=== PATIENT | male | born 1960 | race Caucasian/White ===

== ENCOUNTER → 2018-04-11 07:52 | Outpatient (CLI) | payer OTHER, SELFPAY ==
--- NOTE | 2018-04-11 08:16 | US_ITS ---
US abdomen limited History:Upper abdominal pain, burning, reflux Ordering Physician:Jessica Ramsey Patient Age: 57 years Comparison:02/25/2012 Findings: Pancreas:Unremarkable. No obvious mass or abnormal fluid collection. No ductal dilatation Liver:There is a septated cyst in the right hepatic lobe anteriorly at 2.7 cm. This previously measured 2 cm. There is a small central hepatic cyst is also noted at 1.3 cm with a septation. Right Kidney:Unremarkable. Normal size and echogenicity. No hydronephrosis Gallbladder:There is some increase echogenicity noted involving the anterior wall of the gallbladder suggesting small cholesterol polyps.. No shadowing stones. Small amount sludge is present. Gallbladder wall is slightly thickened measuring up to 4 mm. No pericholecystic fluid Impression: 1. There are at least 2 septated hepatic cysst. 2. Gallbladder wall polyps with a small amount sludge and mild gallbladder wall thickening otherwise negative with no stones apparent
== END ==
PROVIDERS: PCP Nurse Practitioner Family; Visit Provider Nurse Practitioner Family
DX: R10.10 Upper abdominal pain, unspecified (principal); R10.13 Epigastric pain
CPT/HCPCS: 76705

== ENCOUNTER → 2018-04-25 12:27 | Outpatient (CLI) | payer OTHER, SELFPAY ==
[2018-04-25 13:54] LABS: Blood Urea Nitrogen 19 mg/dL (7-18); Creatinine,Serum 0.96 mg/dL (0.70-1.30); Estimated Glomerular Filt Rate 81 ml/min (>60); GFR (African American) 98 ML/MIN (>60)
== END ==
PROVIDERS: Visit Provider Family Medicine
DX: K76.89 Other specified diseases of liver (principal)
CPT/HCPCS: 36415; 82565; 84520

== ENCOUNTER → 2018-04-26 09:28 | Outpatient (CLI) | payer OTHER, SELFPAY ==
--- NOTE | 2018-04-26 09:32 | CT_ITS ---
CT abdomen w con CLINICAL INDICATION: Follow-up hepatic lesion, abnormal ultrasound ITS.REASON: LIVER CYST ORDERING PHYSICIAN: Eriberto Duval MD PATIENT AGE: 57 years COMPARISON: 04/11/2018 TECHNIQUE: Axial images obtained with sagittal and coronal reformats. . Three-phase post enhanced images obtained at 30 seconds, 60 seconds, and 5 minute delay following contrast administration All CT scans at the facility use one or more dose reduction, viz: automated exposure control, ma/kV adjustment per patient size (including targeted exams where dose is matched to indication, i.e. head), or iterative reconstruction technique. PROCEDURE: Oral Contrast: None IV Contrast: 75 mL is Isovue-370. FINDINGS: No acute finding in the lung bases. There are multiple hypoattenuating lesions of the liver the largest in the right hepatic lobe laterally at 3 cm. These do not demonstrate contrast enhancement in the internal density is that of water consistent with hepatic cysts. No enhancing lesions. The gallbladder, spleen, pancreas, and adrenal glands have an unremarkable appearance. No renal mass or hydronephrosis. There is a nonobstructing 5 mm stone in the lower pole the right kidney. No ureteral calculi. No intestinal obstruction or free air. Unremarkable appendix. The pelvis was not included in the exam. No evidence of aortic aneurysm. No acute bony anomalies. IMPRESSION: 1. Multiple hypoattenuating hepatic lesions consistent with cysts. 2. Nonobstructing right nephrolithiasis. 3. Otherwise negative abdominal CT with contrast
== END ==
PROVIDERS: PCP Family Medicine; Visit Provider Family Medicine
DX: K76.89 Other specified diseases of liver (principal)
CPT/HCPCS: 74160; Q9967

== ENCOUNTER 2019-11-04 12:59 | Emergency (ER) | payer OTHER, SELFPAY ==
[2019-11-04 13:20] VITALS: BP 154/102; PULSE 83; RESP 19; TEMP 36.6; O2SAT 98; BMI 31.1
--- NOTE | 2019-11-04 13:39 | HMH.EDUTC ---
[facility] [place] Impression: Maxillary sinusitis, acute Qualifiers: Recurrence: non-recurrent Qualified Code(s): J01.00 - Acute maxillary sinusitis, unspecified Disposition: Home, Self-Care Condition on Discharge: Good Instructions: Sinusitis, DI for Sinusitis Additional Instructions: Start antibiotic patient to take as ordered for a full length of time even if you feel better. Sinus infections do not get better overnight. It may take 2-3 days to notice much improvement so be sure to use conservative measures as discussed for symptoms. Flonase 1 spray each nostril daily to help with nasal congestion, sinus and ear pressure/information Increase fluids Humidifier/vaporizer as needed Tylenol and ibuprofen as needed for fever or pain. If symptoms do not improve or get worse return or be seen in the ER Follow-up with primary care this week Prescriptions: Azithromycin [Zithromax 250mg tab] 250 mg PO DIRECTED #6 tab Prescription Printed Referrals: Efrain Culver MD [Primary Care Provider] - Time of Disposition: 13:50 Medical Decision Making - Sami Inquiry Pt receiving controlled substance: No Vital Signs: 11/04/19 13:20 Temperature 97.8 F Temperature Source Oral Pulse Rate [Right Brachial] 83 Respiratory Rate 19 Blood Pressure [Right Arm] 154/102 H Blood Pressure Mean [Right Arm] 119 Blood Pressure Source [Right Arm] Automatic Cuff Blood Pressure Position [Right Arm] Sitting 02 Sat by Pulse Oximetry 98 Oxygen Delivery Method Room Air [facility] [place] - General Chief complaint: Ear Stated complaint: ear pain Time Seen by Provider: 11/04/19 13:39 Mode of Arrival: Ambulatory Source of Information: Patient Limitations: No Limitations Description of Symptoms (Recalled from Triage Doc. by RN): PATIENT EARACHE AND SINUS PAIN X 3 DAYS HEENT Symptoms (Recalled from RN notes): Yes Resp Symptoms (Recalled from RN notes): No Skin Symptoms (Recalled from RN notes): No MS Symptoms (Recalled from RN notes): No Functional Status (Recalled from RN notes): WNL - History of Present Illness Provider Complaint: 59 yr old male presents for rt side ear pain with sinus pressure. pt states teeth on the upper rt side hurt. - Related Data Previous Rx's Medication Instructions Recorded Azithromycin [Zithromax 250mg 250 mg PO DIRECTED #6 tab 11/04/19 tab] Allergies Allergy/AdvReac Type Severity Reaction Status Date / Time No Known Allergies Allergy Verified 05/26/18 16:49 - Worker's Comp Is this a Worker's Comp case?: No [facility] History - Hepatitis A Screen Drug use history?: No High risk sexual behaviors?: No History of sexually transmitted infection?: No Currently employed?: No Childcare worker?: No Do you have indoor plumbing?: Yes Do you have electricity?: Yes Attestation statement:: This patient has been screened for Hepatitis A risk factors. I have reviewed the patient's past medical history: Yes - Social History Smoking Status: Never smoker Alcohol Intake: never Occupational Status: other ROS Obtained: Yes Systems reviewed as appropriate & no additional complaints - Constitutional Constitutional: Reports system reviewed and no additional complaints, except as docu, Denies fever(s) - Eyes Eyes: Reports system reviewed and no additional complaints, except as docu, Denies change in vision - ENT Ears, Nose, Mouth, and Throat: Reports system reviewed and no additional complaints, except as docu, Reports otalgia, Reports nasal congestion, Denies nasal obstruction, Reports sinus pain, Reports sinus pressure, Denies sore throat - Cardiovascular Cardiovascular: Reports system reviewed and no additional complaints, except as docu, Denies chest pain - Respiratory Respiratory: Yes system reviewed and no additional complaints, except as docu, No chest congestion - Gastrointestinal Gastrointestingal: Reports: system reviewed and no additional complaints, except as docu. Denies
[2019-11-04 14:07] VITALS: BP 154/102; PULSE 83; RESP 19; TEMP 36.6; O2SAT 98
== END 2019-11-04 14:10 | disposition home or self-care (01) ==
PROVIDERS: Emergency Provider Nurse Practitioner Family; PCP Family Medicine
DX: J01.00 Acute maxillary sinusitis, unspecified (principal)
CPT/HCPCS: 96372; 99201

== ENCOUNTER → 2019-11-16 11:31 | Outpatient (CLI) | payer OTHER, SELFPAY ==
--- NOTE | 2019-11-16 11:36 | CT_ITS ---
PROCEDURE: CT SOFT TISSUE NECK WO CON CLINICAL HISTORY: LYMPHADENITIS, ACUTE, CERVICAL ADENOPATHY COMPARISON: No exams were available for comparison TECHNIQUE: Oral Contrast: None IV Contrast: None Axial images obtained with sagittal and coronal reformats. All CT scans at the facility use one or more dose reduction, viz: automated exposure control, ma/kV adjustment per patient size (including targeted exams where dose is matched to indication, i.e. head), or iterative reconstruction technique. FINDINGS: The parotid glands are normal and symmetrical bilaterally. There are few normal size to borderline enlarged nodes in the jugulodigastric chain bilaterally. The submandibular glands appear normal. The oral pharyngeal airway appears grossly normal. The valleculae and piriform sinuses are normal. The vocal cords appear normal. There is a somewhat irregular appearing hypodense lesion anterior aspect left lobe of the thyroid. Consider follow-up ultrasound evaluation of the thyroid. IMPRESSION: No obvious abnormal cervical lymphadenopathy, there are multiple normal to borderline size nodes in the jugulodigastric chain bilaterally. Dictated by: Dr. Constantino Ken MD 11/16/2019 12:33 Dr. Constantino Ken MD in [place] 11/16/2019 12:33
--- NOTE | 2019-11-16 11:36 | CT_ITS ---
PROCEDURE: CT HEAD/BRAIN WO CON CLINICAL INDICATION: LYMPHADENITIS, ACUTE, CERVICAL ADENOPATHY COMPARISON: No exams were available for comparison TECHNIQUE: Axial images obtained. All CT scans at the facility use one or more dose reduction, viz: automated exposure control, ma/kV adjustment per patient size (including targeted exams where dose is matched to indication, i.e. head), or iterative reconstruction technique. FINDINGS: No midline shift, mass effect, intracranial hemorrhage, hydrocephalus, or extra-axial fluid collection is evident. There is no significant cortical atrophy. The calvarium has an unremarkable appearance. No mastoid effusion. No sinus air-fluid level. IMPRESSION: No acute intracranial finding Dictated by: Dr. Constantino Ken MD 11/16/2019 12:10 Dr. Constantino Ken MD in [facility] 11/16/2019 12:10
--- NOTE | 2019-11-16 11:37 | XR_ITS ---
PROCEDURE: XR CHEST 2V CLINICAL HISTORY: LYMPHADENITIS,ACUTE, CERVICAL ADENOPATHY COMPARISON: No exams were available for comparison FINDINGS: The cardiomediastinal silhouette and pulmonary vascularity are within normal limits. The lungs are clear without infiltrates, suspicious nodules, or pleural effusions. No acute bony abnormalities. IMPRESSION: No acute findings. Dictated by: Jarek Benítez MD 11/16/2019 19:15 Jarek Benítez MD in [facility] 11/16/2019 19:15
== END ==
PROVIDERS: PCP Family Medicine; Visit Provider Nurse Practitioner
DX: L04.9 Acute lymphadenitis, unspecified (principal); R59.0 Localized enlarged lymph nodes
CPT/HCPCS: 70450; 70490; 71046

== ENCOUNTER → 2019-12-06 15:18 | Outpatient (CLI) | payer OTHER, SELFPAY ==
--- NOTE | 2019-12-06 15:20 | US_ITS ---
PROCEDURE: US THYROID CLINICAL INDICATION: ENLARGED LYMPH NODES Neck swelling COMPARISON: CT CT SOFT TISSUE NECK WO CON from 11/16/2019 FINDINGS: The isthmus is slightly thickened at 4 mm. The right lobe is 3.8 x 1.6 x 2.2 cm. There are multiple nodules in the right lobe. Nodule A is 12 mm solid-appearing in the upper pole posteriorly with some mild nodularity of the margins. This nodule is hypoechoic with no obvious calcifications. In the mid polar region on the right there is a 7 x 6 mm hypoechoic nodule, B which appears solid with some questionable small punctate calcifications. In the upper pole there is a 7 x 3 mm hypoechoic nodule which has benign appearance. In the lower pole there is a 18 by 10 mm lobulated isoechoic/hypoechoic nodule which appears solid. In the lower pole there is a 8 mm x 13 mm hypoechoic nodule with enhanced through transmission of sound. The left lobe is 4.6 x 1.8 x 2.2 cm. In the upper pole there is a 13 x 10 mm mostly isoechoic nodule. In the mid polar region there is a 2.4 x 1.6 cm mixed cystic and solid nodule. In the mid polar region there is a 9 mm isoechoic nodule. IMPRESSION: There are multiple bilateral bilateral thyroid nodules some which are mildly to moderately suspicious. Findings may be related to multinodular goiter. Cannot exclude neoplasm. Suggest FNA of the 2 suspicious solid lesions on the right which are labeled as A and B well as the dominant nodule on the left which is labeled as B on the ultrasound Dictated by: Jarek Benítez MD 12/07/2019 09:35 Jarek Benítez MD in [place] 12/07/2019 09:35
== END ==
PROVIDERS: PCP Family Medicine; Visit Provider Nurse Practitioner
DX: R59.9 Enlarged lymph nodes, unspecified (principal)
CPT/HCPCS: 76536

== ENCOUNTER → 2020-01-01 09:55 | Outpatient (CLI) | payer OTHER, SELFPAY ==
--- NOTE | 2020-01-01 09:58 | US_ITS ---
PROCEDURE: US BIOPSY THYROID CLINICAL INDICATION: MULTIPLE THYROID NODULES bilat thyroid nodules--- rt lobe x 2--lt 1 nodule COMPARISON: US US THYROID from 12/06/2019 TECHNIQUE: The patient has multiple thyroid nodules. On the right there were 2 suspicious nodules and on the left there was 1 suspicious nodule. Pre biopsy ultrasound was performed confirming the dominant left cystic nodule in the 2 suspicious solid nodules on the right both in the upper pole. Following obtaining informed consent, using aseptic technique and local anesthesia with buffered lidocaine, fine-needle aspiration was performed of each nodule of interest using sonographic guidance. Two passes were made into each nodule with a 21-gauge needle. Specimen was given to cytology. Patient tolerated the procedure well without evidence of immediate complications. FINDINGS: Cytology Right thyroid nodule 1. Upper pole previously described is nodule a: Negative for malignancy. Right thyroid nodule 2. Previously noted as nodule B on ultrasound of 12/06/2019: Negative for malignancy. Left thyroid nodule: Negative for malignancy IMPRESSION: Status post FNA thyroid gland of 3 different nodules all negative for malignancy. Suggest continued six-month follow-up to confirm stability The patient tolerated the procedure well without evidence of immediate complications and left the ultrasound suite in stable condition. Dictated by: Jarek Benítez MD 01/07/2020 06:56 Jarek Benítez MD in [place] 01/07/2020 06:56
== END ==
PROVIDERS: PCP Family Medicine; Visit Provider Nurse Practitioner
DX: E04.2 Nontoxic multinodular goiter (principal)
CPT/HCPCS: 10005; 10006 ×2; 76942

== ENCOUNTER → 2020-01-17 14:28 | Outpatient (CLI) | payer OTHER, SELFPAY ==
[2020-01-18 13:53] LABS: Covid-19 Nasal PCR Sendout Lex NOT DETECTED
== END ==
PROVIDERS: PCP Family Medicine; Visit Provider Nurse Practitioner Family
DX: Z03.818 Encounter for observation for suspected exposure to other biological agents ruled out (principal)
CPT/HCPCS: U0004

== ENCOUNTER 2020-04-12 16:44 | Emergency (ER) | payer OTHER, SELFPAY ==
[2020-04-12 17:20] VITALS: BP 144/96; PULSE 95; RESP 20; TEMP 36.8; O2SAT 99; BMI 29.9
--- NOTE | 2020-04-12 17:43 | HMH.EDUTC ---
[facility] [place] Disposition Clinical Impression: Sinusitis Qualifiers: Sinusitis location: unspecified location Chronicity: unspecified Qualified Code(s): J32.9 - Chronic sinusitis, unspecified Disposition: Home, Self-Care Condition on Discharge: Good Instructions: Sinusitis, Sinus Headache, DI for Sinusitis, DI for COVID-19 (Suspected or Confirmed ), Coronavirus Disease 2019 Additional Instructions: *Monitor Temp, Over the counter Motrin or Tylenol as directed/as needed Tylenol every 4 hours and Motrin every 6 hours (as long as your family doctor has told you that you can take it) for fever or pain. and straight to ER if unable to lower temp less than 101.0 after medication given *Warm salt water gargles may help to soothe the throat *Throat Lozenges *Warm fluids like tea with honey may help to soothe the throat *Sleep elevated *Humidifier/Vaporizer Follow up IMMEDIATELY for new or worsening symptoms or no Noticeable improvement over the next 48-72 hours. 911 for difficulty breathing or swallowing You were tested for today for COVID19 your test result should be back in the next 24-48 hours, you may call to the [facility] to see if your test results are back in the next 48 hours [phone] [facility] hours are 9am-9pm You was given a handout with instructions for Self Quarantine and Self isolation for while you wait on test results and what to do if they are positive If you are positive the Health Dept will be contacting you also Prescriptions: Promethazine/Dextromethorphan [Promethazine-Dm Syrup] 2.5 - 5 ml PO Q46H PRN #100 ml PRN Reason: Cough Transmission Status: Pending to [facility] Azithromycin [Z-Gabriel 250mg Tab] 250 mg PO DIRECTED #6 tab Transmission Status: Pending to [facility] Referrals: Efrain Culver MD [Primary Care Provider] - As needed Time of Disposition: 17:48 Medical Decision Making - Sami Inquiry Pt receiving controlled substance: No Sami was queried for this patient: No Vital Signs: 04/12/20 17:20 Temperature 98.3 F Temperature Source Oral Pulse Rate [Right Brachial] 95 H Respiratory Rate 20 Blood Pressure [Right Arm] 144/96 H Blood Pressure Mean [Right Arm] 112 Blood Pressure Source [Right Arm] Automatic Cuff Blood Pressure Position [Right Arm] Sitting 02 Sat by Pulse Oximetry 99 Oxygen Delivery Method Room Air Orders (Tests/Meds): ORDERS Category Date Time Status Covid-19 Nasal PCR ([facility]) Routine Lab 04/12/20 16:51 Ordered [facility] [place] HPI - General Stated complaint: covid test Time Seen by Provider: 04/12/20 17:43 Mode of Arrival: Ambulatory Source of Information: Patient Limitations: No Limitations Description of Symptoms (Recalled from Triage Doc. by RN): COVID TEST D/T EXPOSURE. C/O DRY COUGH AND HEADACHE SINCE TUESDAY NIGHT HEENT Symptoms (Recalled from RN notes): Yes Resp Symptoms (Recalled from RN notes): Yes Skin Symptoms (Recalled from RN notes): No MS Symptoms (Recalled from RN notes): No Functional Status (Recalled from RN notes): WNL - History of Present Illness Provider Complaint: Patient states that he gets sinus infections a couple times a year State that his and mother recently tested positive for COVID States that he has been having sinus pain and pressure along with feeling of pressure in his teeth like he gets with a sinus infection and cough - Related Data Previous Rx's Medication Instructions Recorded Azithromycin [Zithromax 250mg 250 mg PO DIRECTED #6 tab 11/04/19 tab] Azithromycin [Z-Gabriel 250mg Tab] 250 mg PO DIRECTED #6 tab 04/12/20 Promethazine/Dextromethorphan 2.5 - 5 ml PO Q46H PRN #100 ml 04/12/20 [Promethazine-Dm Syrup] Allergies Allergy/AdvReac Type Severity Reaction Status Date / Time No Known Allergies Allergy Verified 05/26/18 16:49 - Worker's Comp Is this a Worker's Comp case?: No [facility] History - Hepatitis A Screen Drug use history?: No High risk sexual behaviors?: No History of s
[2020-04-12 17:53] VITALS: BP 144/96; PULSE 95; RESP 20; TEMP 36.8; O2SAT 99
--- NOTE | 2020-04-13 21:08 | PC.NURSE ---
PT NOTIFIED OF POSITIVE COVID RESULT
== END 2020-04-12 17:57 | disposition home or self-care (01) ==
PROVIDERS: Emergency Provider Nurse Practitioner; PCP Family Medicine
DX: U07.1 COVID-19 (principal)
CPT/HCPCS: 99202; G0463; U0003

== ENCOUNTER → 2020-06-27 08:31 | Outpatient (CLI) | payer OTHER, SELFPAY ==
--- NOTE | 2020-06-27 | CA_ITS ---
APPROVED REPORT [employer] Artisan: TUSHAR Laterality: Bilateral Indications: dizziness, headaches Risk Factors Hypertension: Doppler Spectral Velocity Analysis ECA (R) 101.10/28.90 cm/s ECA (L) 87.50/24.70 cm/s dICA (R) 94.40/42.40 cm/s dICA (L) 53.10/26.20 cm/s Linette (R) 50.70/21.80 cm/s Linette (L) 98.20/49.10 cm/s pICA (R) 64.90/28.90 cm/s pICA (L) 61.40/29.90 cm/s dCCA (R) 56.50/22.50 cm/s dCCA (L) 80.80/26.20 cm/s pCCA (R) 85.50/24.60 cm/s pCCA (L) 100.30/29.90 cm/s Vert (R) 46.50/15.00 cm/s Vert (L) 29.40/11.80 cm/s ICA/CCA 1.67 ICA/CCA 1.22 Findings Duplex evaluation demonstrates stenosis of the right proximal internal carotid artery <20%. Duplex evaluation demonstrates no evidence of hemodynamically significant stenosis of the left Internal Carotid Artery. Conclusion Duplex evaluation demonstrates stenosis of the right proximal internal carotid artery <20%. Duplex evaluation demonstrates no evidence of hemodynamically significant stenosis of the left Internal Carotid Artery. Electronically signed by : Jarek Benítez MD 06/27/2020 16:21:30
--- NOTE | 2020-06-27 08:40 | MR_ITS ---
PROCEDURE: MR HEAD/BRAIN WO CON CLINICAL INDICATION: DIZZINESS AND HEADACHES SINCE HAVING COVID 04/2020 Pt c/o intermittent blurred vision since covid 04/2019. Prior CT brain wo done 11/16/2019. COMPARISON: CT CT HEAD/BRAIN WO CON from 11/16/2019 TECHNIQUE: Routine multiplanar multi echo sequences are performed without gadolinium enhancement. FINDINGS: No midline shift, mass effect, intracranial hemorrhage, hydrocephalus, or acute infarction is evident. The cerebellopontine angles, cerebellum, and brainstem have an unremarkable appearance. The partial empty sella noted as a normal variant. The optic chiasm, corpus callosum, and craniocervical junction have an unremarkable appearance. No mastoid effusion. Mucosal thickening involves the ethmoid and frontal sinuses. IMPRESSION: No acute intracranial findings Dictated by: Jarek Benítez MD 06/29/2020 10:19 Jarek Benítez MD in [place] 06/29/2020 10:19
== END ==
PROVIDERS: PCP Family Medicine; Visit Provider Nurse Practitioner Family
DX: R42 Dizziness and giddiness (principal); I10 Essential (primary) hypertension
CPT/HCPCS: 70551; 93880

== ENCOUNTER 2020-09-26 06:09 | Emergency (ER) | payer OTHER, SELFPAY ==
[2020-09-26 06:11] VITALS: BP 141/91; PULSE 73; RESP 16; TEMP 36.6; O2SAT 98; BMI 30.8
--- NOTE | 2020-09-26 06:21 | CT_ITS ---
PROCEDURE INFORMATION: Exam: CT Abdomen And Pelvis Without Contrast Exam date and time: 09/26/2020 6:21 AM Age: 60 years old Clinical indication: Abdominal pain; Prior surgery; Surgery type: Hernia; Additional info: Kidney stone protocol. RT flank pain TECHNIQUE: Imaging protocol: Computed tomography of the abdomen and pelvis without contrast. Radiation optimization: All CT scans at this facility use at least one of these dose optimization techniques: automated exposure control; mA and/or kV adjustment per patient size (includes targeted exams where dose is matched to clinical indication); or iterative reconstruction. COMPARISON: ABDW CT abdomen w con 04/26/2018 10:03 AM FINDINGS: Liver: Stable multiple hypoattenuating hepatic lesions including 3 cm right hepatic peripheral irregular focus, probably related to cysts or less likely hemangiomas. Gallbladder and bile ducts: No calcified stones. No ductal dilation. Pancreas: Unremarkable. No significant pancreatic ductal dilatation seen. Spleen: Unremarkable. No splenomegaly noted. Adrenal glands: Normal. No mass. Kidneys and ureters: Moderate right hydroureteronephrosis noted proximal to an obstructing 5 mm mid-ureteral stone which is located about 8.6 cm from the UPJ. Stomach and bowel: Colonic diverticulosis without evidence of diverticulitis. Appendix: The appendix is visualized and appears unremarkable. Intraperitoneal space: Unremarkable. No free air. No significant fluid collection. Vasculature: Unremarkable. No abdominal aortic aneurysm. Lymph nodes: Unremarkable. No enlarged lymph nodes. Urinary bladder: Unremarkable as visualized. Reproductive: Unremarkable as visualized. Bones/joints: Unremarkable. No acute fracture. Soft tissues: Bilateral fat-containing inguinal hernia. IMPRESSION: 1. Moderate right hydroureteronephrosis noted proximal to an obstructing 5 mm mid-ureteral stone which is located about 8.6 cm from the UPJ. 2. Colonic diverticulosis without evidence of diverticulitis. 3. Other incidental/chronic changes, as above.
--- NOTE | 2020-09-26 06:26 | HMH.EDABDPAI ---
ED Disposition Clinical Impression: Calculus of kidney Disposition: Still a Patient Condition on Discharge: Good Instructions: DI for Acute Abdominal Pain Referrals: Efrain Culver MD [Primary Care Provider] - - Critical Care Critical Care Time: No Attestation: On , the high probability of a clinically significant, sudden or life threatening deterioration of the following system(s) required my full and direct attention, intervention and personal management. The time I documented below is in addition to time spent performing reported procedures but includes the following listed in this critical care notation. Medical Decision Making - Medical Records Medical records reviewed: Yes: I reviewed the patient's medical records. - Sami Inquiry Pt receiving controlled substance: No Vital Signs: 09/26/20 06:11 09/26/20 06:46 09/26/20 07:00 Temperature 97.9 F Temperature Source Oral Pulse Rate 64 71 Pulse Rate [Left Radial] 73 Respiratory Rate 16 Blood Pressure 130/88 121/79 Blood Pressure [Right Arm] 141/91 H Blood Pressure Mean [Right Arm] 107 Blood Pressure Source [Right Arm] Automatic Cuff Blood Pressure Position [Right Arm] Sitting 02 Sat by Pulse Oximetry 98 96 99 Oxygen Delivery Method Room Air - Lab Data Lab Results 09/26/20 06:37: WBC 11.0 H, RBC 4.83, Hgb 14.3, Hct 41.6 L, MCV 86.2, MCH 29.6, MCHC 34.4, RDW 12.8, Plt Count 252, MPV 7.4, Neut % (Auto) 77.6, Lymph % (Auto) 14.8, [place] % (Auto) 4.7, Eos % (Auto) 2.7, Baso % (Auto) 0.2, Neut # (Auto) 8.6 H, Lymph # (Auto) 1.6, [place] # (Auto) 0.5, Eos # (Auto) 0.3, Baso # (Auto) 0.0 09/26/20 06:37: Sodium 140, Potassium 4.1, Chloride 107, Carbon Dioxide 24, Anion Gap 13.1, BUN 24 H, Creatinine 1.40 H, Estimated Creat Clear 89, Estimated GFR 52 L, Est GFR ( Amer) 63, Glucose 122 H, Calcium 9.6, Total Bilirubin 0.6, AST 21, ALT 18, Alkaline Phosphatase 97, Total Protein 7.3, Albumin 4.3, Globulin 3.0, Albumin/Globulin Ratio 1.4, Lipase 80 Result diagrams: 09/26/20 06:37 09/26/20 06:37 Orders (Tests/Meds): ED MEDICATIONS Discontinued Medications Generic Name Dose Route Start Last Admin Trade Name Esther PRN Reason Stop Dose Admin Sodium Chloride 1,000 mls @ 999 mls/hr 09/26/20 06:30 09/26/20 06:36 Sod Chlor 0.9% 1000ml Bag IV 09/26/20 07:30 999 mls/hr .Q1H1M MIRIAM Administration Ketorolac Tromethamine 30 mg 09/26/20 06:21 09/26/20 06:36 Ketorolac 30mg/Ml Vial IV 09/26/20 06:22 30 mg ONCE ONE Administration Promethazine HCl 25 mg 09/26/20 06:21 09/26/20 06:36 Promethazine Hcl 25mg/Ml 1ml Vial IV 09/26/20 06:22 25 mg ONCE ONE Administration Sodium Chloride 25 ml 09/26/20 06:21 09/26/20 06:36 Sodium Chloride 0.9% 25ml Bag IV 09/26/20 06:22 25 ml ONCE ONE Administration ORDERS Category Date Time Status CT abdomen pelvis wo con Stat Cat Scan 09/26/20 06:21 Taken Urinalysis and Microscopic Stat Lab 09/26/20 06:21 Ordered Medical Decision Narrative: 60-year-old male presents with renal colic-like symptoms. He is tender on the right side of his abdomen and history is atypical for acute appendicitis. CT abdomen pelvis obtained to rule out any mimics. Less likely etiology of perforation ischemia bowel obstruction pancreatitis gastritis hepatitis. Given symptomatic treatment and stable in the emergency department CT a/p with likely ureter stone. CT read pending. Dr. Davis to f/u on results and disposition Abdominal Pain HPI - General Chief Complaint: Abdominal Pain Stated Complaint: Right side pain and lower back pain with vomiting Time Seen by Provider: 09/26/20 06:10 Mode of Arrival: Ambulatory Limitations: No Limitations Description of Symptoms (Recalled from ER Triage Doc. by RN): Pt reports general malaise last night since 10pm. Pt reports pain in RLQ that radiates into lower back and right flank. Also reports x3 vomiting. Pt denies fevers. Denies chills. Denies
[2020-09-26 06:46] VITALS: BP 130/88; PULSE 64; O2SAT 96
[2020-09-26 06:47] LABS: Basophils % 0.2 % (0.1-2.0); Eosinophils # 0.3 K/mm3 (0.0-0.4); Eosinophils % 2.7 % (0.1-12.0); Hematocrit 41.6 % (42.0-52.0); Hemoglobin 14.3 g/dL (14.1-18.0); Lymphocytes # 1.6 K/mm3 (0.7-4.5); Lymphocytes % 14.8 % (10-50); Mean Corpuscular HGB Conc 34.4 g/dL (31.8-35.4); Mean Corpuscular Hemoglobin 29.6 pg (27.0-31.2); Mean Corpuscular Volume 86.2 fl (80-94); Mean Platelet Volume 7.4 fl (7.4-10.4); Monocytes # 0.5 K/mm3 (0.1-1.0); Monocytes % 4.7 % (1.7-9.3); Neutrophils # 8.6 K/mm3 (1.8-7.8); Neutrophils % 77.6 % (37.0-80.0); Platelet Count 252 K/mm3 (142-424); Red Blood Count 4.83 M/mm3 (4.60-6.20); Red Cell Distribution Width 12.8 % (11.5-17.5)
[2020-09-26 06:48] LABS: Chloride 107 mmol/L (98-107); Potassium 4.1 mmoL/L (3.5-5.1); Sodium 140 mmol/L (136-145)
[2020-09-26 06:50] LABS: Blood Urea Nitrogen 24 mg/dl (9-20)
[2020-09-26 06:51] LABS: Alanine Aminotransferase 18 U/L (12-78); Albumin Level 4.3 g/dl (3.5-5.0); Albumin/Globulin Ratio 1.4 (1.1-1.8); Alkaline Phosphatase 97 U/L (38-126); Anion Gap 13.1 mEq/L (5-15); Aspartate Amino Transferase 21 U/L (17-59); Bilirubin,Total 0.6 mg/dl (0.2-1.3); Calcium 9.6 mg/dl (8.4-10.2); Carbon Dioxide 24 mmol/L (22.0-30.0); Creatinine Clearance Estimated 89 mL/min (50-200); Estimated Glomerular Filt Rate 52 ml/min (>60); GFR (African American) 63 ML/MIN (>60); Glucose 122 mg/dl (74-100); Lipase 80 U/L (23-300); Total Protein,Serum 7.3 g/dl (6.3-8.2)
[2020-09-26 07:00] VITALS: BP 121/79; PULSE 71; O2SAT 99
[2020-09-26 07:30] VITALS: BP 124/94; PULSE 68; RESP 18; O2SAT 98
[2020-09-26 08:08] LABS: Microscopic, Urine URINE MICROSCOPIC (MICROSCOPIC)
[2020-09-26 08:26] LABS: Appearance,Urine SL CLOUDY (Clear); Blood, Urine Negative (Negative); Color,Urine DK YELLOW (Yellow); Glucose,Urine (UA) Negative (Negative); Ketones,Urine Negative (Negative); Leukocyte Esterase,Urine Negative (Negative); Nitrate,Urine Negative (Negative); Protein,Urine TRACE (Negative); Specific Gravity, Urine >= 1.030 (1.005-1.030); Urobilinogen,Urine 0.2 EU/dl (0.2)
[2020-09-26 08:35] LABS: Bilirubin,Urine 1+ (Negative)
[2020-09-26 08:44] LABS: RBC,Urine Occasional #/hpf (0-3); Squamous Epithelial Cell,Urine Occasional #/hpf (0-5)
[2020-09-26 08:59] VITALS: BP 137/85; PULSE 68; RESP 16; TEMP 36.6; O2SAT 99
== END 2020-09-26 08:59 | disposition home or self-care (01) ==
PROVIDERS: Emergency Medicine; Emergency Provider Family Medicine; PCP Family Medicine
DX: N20.0 Calculus of kidney (principal)
CPT/HCPCS: 74176; 80053; 81001; 83690; 85025; 96365; 96375; 99283

== ENCOUNTER → 2021-04-21 14:52 | Outpatient (CLI) | payer OTHER, SELFPAY ==
--- NOTE | 2021-04-21 | CA_ITS ---
FINAL REPORT TECHNIQUE: Color Doppler, duplex Doppler and compression sonography of the right lower extremity venous system was performed. CLINICAL HISTORY: .INJURED R ANKLE IN FEBRUARY, 2 WEEKS AGO ANKLE STARTED SWELLING AND REDNESS AROUND ANKLE AREA. RLE NEGATIVE FOR DVT/SVT FINDINGS: There is no evidence of deep venous thrombosis from the level of the groin to the calf. The veins are patent and compressible. IMPRESSION: No evidence of deep venous thrombosis right lower extremity. Reviewed, Interpreted and Dictated by Omid Lo III, MD Transcribed by Valeria Claire Authenticated by Omid Lo III, MD on 04/21/2021 04:36:23 PM [facility]
== END ==
PROVIDERS: PCP Family Medicine; Visit Provider Nurse Practitioner Family
DX: M25.571 Pain in right ankle and joints of right foot (principal); M25.471 Effusion, right ankle
CPT/HCPCS: 93971

== ENCOUNTER → 2021-05-06 07:22 | Outpatient (CLI) | payer OTHER, SELFPAY ==
--- NOTE | 2021-05-06 07:30 | MR_ITS ---
FINAL REPORT CLINICAL HISTORY: RIGHT ANKLE SWELLING, TWISTED ANKLE IN FEBRUARY, REDNESS/BRUISING/SWELLING. NO PRIOR FINDINGS: Multiplanar MR imaging of the right ankle was performed without contrast. The bony structures are intact without evidence of fracture, bone bruise or marrow edema. Mild degenerative change is present. There is a small osteochondral lesion of the medial talar dome measuring 6 mm. There is thinning of the anterior talofibular ligament, probably prior partial tear. The calcaneofibular ligament is not seen and likely torn. There is peroneus longus and brevis tenosynovitis. There is an intrasubstance tear at the posterior insertion of the plantar aponeurosis with adjacent soft tissue edema. Small tibiotalar and subtalar joint effusions are identified. The musculature is intact. There is no evidence of soft tissue mass or cyst. IMPRESSION: Osteochondral lesion of the medial talar dome. Tenosynovitis. Intrasubstance tear of the plantar aponeurosis. Tears of the anterior talofibular and calcaneofibular ligaments as above. Reviewed, Interpreted and Dictated by Omid Lo III, MD Transcribed by Valeria Claire Authenticated by Omid Lo III, MD on 05/06/2021 09:25:24 AM [facility]
== END ==
PROVIDERS: PCP Family Medicine; Visit Provider Family Medicine
DX: M25.471 Effusion, right ankle (principal)
CPT/HCPCS: 73721

== ENCOUNTER → 2021-05-28 14:27 | Outpatient (CLI) | payer OTHER, SELFPAY ==
--- NOTE | 2021-05-28 14:45 | XR_ITS ---
FINAL REPORT CLINICAL HISTORY: pain COMPARISON: MRI dated 05/06/2021 FINDINGS: 3 views of the right foot were obtained. There is abnormal attenuation in the anterior calcaneus that appears to be well corticated. This is a predominantly lucent lesion with a well-defined zone of transition. Lesion measures 4.3 x 2.8 cm. There is internal calcification or ossification. There is no acute fracture or dislocation. The joint spaces are intact. The soft tissues are unremarkable. 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 Reviewed, Interpreted and Dictated by Sony Lozada MD Transcribed by Tony Vargas Authenticated by Sony Lozada MD on 05/28/2021 03:58:45 PM [facility]
== END ==
PROVIDERS: PCP Family Medicine; Visit Provider Podiatrist
DX: M79.671 Pain in right foot (principal)
CPT/HCPCS: 73630

== ENCOUNTER 2021-06-12 11:00 | Outpatient (RCR) | payer OTHER, SELFPAY ==
--- NOTE | 2021-06-09 14:56 | HMH.PTOPEV ---
PT Outpatient Evaluation Rehab PT Outpatient Evaluation Start: 06/09/21 14:09 Freq: Status: Active Protocol: Document 06/09/21 14:37 CARLOS (Rec: 06/09/21 14:56 CARLOS [id number]) Electronically Signed By Kali Bruno, PT 06/09/21 14:37 Outpatient Therapy Subjective History Subjective History Pt reports h/o right ankle pain and instability since ' rolling it' in . Pt reports improved ankle s/s until he contracted Covid-19 in late , 'then I had this crazy blood blister come up on the inside of my ankle, redness, and swelling'. Pt reports right ankle MRI revealed 'bone cyst, and the only thing that makes sense is the covid attacked that bone cyst...' Pt reports improved right ankle skin lesion(s) since late , and improved right ankle strength, ROM, and stability, however, still reports the need for lace-up ankle brace, and frequent rst periods w/high level physical activity. Chief Complaint Pain,Weakness Symptom Type Ache,Dull Symptoms Relieved By Rest/Positioning,Brace/Support Symptoms Aggravated By Standing,Physical Activity, Walking Prior Functional Limitations Lifting,Housework,Standing, Walking,Stairs Current Functional Limitations Walking,Stairs Symptom Description Constant but Variable Level of pain today (0-10) 3 Pain scale - at its best (0-10) 2 Pain scale - at its worst (0-10) 5 Ankle/Foot Eval Gait Observation General Gait Pattern Observation Antalgic Gait Palpation Tenderness right Ankle/Foot Palpation Findings Tenderness Ankle/Foot Palpation Overall Comment 3/4 post. tib tendon ROM Ankle/Foot Dorsiflexion w/Knee Extended 0-10 Active Range Motion (degrees) Ankle/Foot Plantar Flexion Active Range 0-45 of Motion (degrees) Ankle/Foot Eversion Active Range of 0-30 Motion (degrees) Ankle/Foot Inversion Active Range of 0-18 Motion (degrees) MMT Ankle Dorsiflexion Strength Grade 4 Good Ankle Plantarflexion Strength Grade 4 Good Foot Eversion Strength Grade 4 Good Foot Inversion Strength Grade 4 Good Special Tests Ankle Anterior Drawer Test
== END 2021-06-12 11:05 | disposition home or self-care (01) ==
LOC: PT 11:00
PROVIDERS: PCP Family Medicine; Visit Provider Podiatrist
DX: M25.571 Pain in right ankle and joints of right foot (principal)
CPT/HCPCS: 97110; 97112; 97163

== ENCOUNTER → 2021-07-14 10:44 | Outpatient (CLI) | payer OTHER, SELFPAY ==
--- NOTE | 2021-07-14 10:58 | XR_ITS ---
FINAL REPORT CLINICAL HISTORY: pain to heel, discoloration to inside of foot by heel COMPARISON: 05/28/2021 FINDINGS: RIGHT FOOT Three views were obtained. There is no acute fracture or dislocation. The joint spaces appear normal. There is a lucent defect in the anterior calcaneus measuring 4.3 x 3.0 cm consistent with a lipoma with a central inclusion. IMPRESSION: Lipoma in the anterior calcaneus. Reviewed, Interpreted and Dictated by Sony Lozada MD Transcribed by Valeria Claire Authenticated by Sony Lozada MD on 07/14/2021 12:50:[address] [facility]
== END ==
PROVIDERS: PCP Nurse Practitioner Family; Visit Provider Podiatrist
DX: M79.671 Pain in right foot (principal); M85.671 Other cyst of bone, right ankle and foot
CPT/HCPCS: 73630

== ENCOUNTER → 2021-07-20 13:28 | Outpatient (CLI) | payer OTHER, SELFPAY ==
--- NOTE | 2021-07-20 13:29 | CT_ITS ---
FINAL REPORT TECHNIQUE: Thin section axial CT images with coronal and sagittal reformats of the right foot were performed. 3D reformatted images were also obtained and reviewed. This study was performed with techniques to keep radiation doses as low as reasonably achievable (ALARA). Individualized dose reduction techniques using automated exposure control or adjustment of mA and/or kV according to the patient''s size were employed. CLINICAL HISTORY: calcaneus pain, twist ankle back in March. Bruising on medial side of calcaneus. Surgical planning for bx of calcaneus FINDINGS: There is no fracture. A well-circumscribed, lytic lesion is seen in the inferior body of the calcaneus measuring 4.3 x 2.9 cm on sagittal reformatted images with central fluid component measuring 20 mm. This has a nonaggressive appearance and likely represents an intraosseous lipoma with cystic component. There are mild degenerative changes. Mild edema is seen at the heel pad. There are chronic calcifications inferior to the medial malleolus. IMPRESSION: Well-circumscribed cystic lesion in the inferior body of the calcaneus likely representing intraosseous lipoma with cystic component. Reviewed, Interpreted and Dictated by Omid Lo III, MD Transcribed by Dorene Jurado Authenticated by Omid Lo III, MD on 07/20/2021 04:06:[address] [facility]
== END ==
PROVIDERS: PCP Nurse Practitioner Family; Visit Provider Podiatrist
DX: M25.371 Other instability, right ankle (principal); M62.9 Disorder of muscle, unspecified; M65.9 Synovitis and tenosynovitis, unspecified
CPT/HCPCS: 73700

== ENCOUNTER → 2021-07-28 12:39 | Outpatient (CLI) | payer OTHER, SELFPAY ==
--- NOTE | 2021-07-28 12:46 | XR_ITS ---
FINAL REPORT TECHNIQUE: Chest PA & Lateral CLINICAL HISTORY: ALLERGIES,CONGESTION pre-op, right foot bone cyst. COMPARISON: November 16, 2019 FINDINGS: 2 views of the chest were performed. The heart size is normal. The mediastinum is within normal limits. There are mild chronic changes in the lungs. There are no pleural effusions. There is no pneumothorax. The bony thorax appears intact. IMPRESSION: No acute cardiopulmonary process. Reviewed, Interpreted and Dictated by Sony Lozada MD Transcribed by Tony Vargas Authenticated by Sony Lozada MD on 07/28/2021 02:28:[address] [facility]
--- NOTE | 2021-07-28 13:30 | ECG_ITS ---
APPROVED REPORT Exam: Resting ECG HR:63 bpm ECG Measurements Heart Rate [address] 164 P 57 QRSd 97 QRS -44 QT 421 T 13 QTc 428 Conclusion SINUS RHYTHM LEFT AXIS DEVIATION [QRS AXIS < -30] MINIMAL VOLTAGE CRITERIA FOR LVH, CONSIDER NORMAL VARIANT [MEETS CRITERIA IN ONE OF: R(aVL), S(V1), R(V5), R(V5/V6)+S(V1)] ABNORMAL ECG UNCONFIRMED REPORT Electronically signed by : Eriberto Valadez MD 07/30/2021 08:04:27
[2021-07-28 13:48] LABS: Basophils % 0.5 % (0.1-2.0); Eosinophils # 0.4 K/mm3 (0.0-0.4); Eosinophils % 5.1 % (0.1-12.0); Hematocrit 44.1 % (42.0-52.0); Hemoglobin 14.9 g/dL (14.1-18.0); Lymphocytes # 2.6 K/mm3 (0.7-4.5); Lymphocytes % 32.6 % (10-50); Mean Corpuscular HGB Conc 33.9 g/dL (31.8-35.4); Mean Corpuscular Hemoglobin 29.7 pg (27.0-31.2); Mean Corpuscular Volume 87.5 fl (80-94); Mean Platelet Volume 7.5 fl (7.4-10.4); Monocytes # 0.6 K/mm3 (0.1-1.0); Monocytes % 8.1 % (1.7-9.3); Neutrophils # 4.2 K/mm3 (1.8-7.8); Neutrophils % 53.7 % (37.0-80.0); Platelet Count 249 K/mm3 (142-424); Red Blood Count 5.04 M/mm3 (4.60-6.20); Red Cell Distribution Width 12.7 % (11.5-17.5); White Blood Count 7.9 K/mm3 (4.8-10.8)
[2021-07-28 14:23] LABS: Chloride 106 mmol/L (98-107); Potassium 4.6 mmoL/L (3.5-5.1); Sodium 138 mmol/L (136-145)
[2021-07-28 14:26] LABS: Alanine Aminotransferase 21 U/L (12-78); Albumin Level 4.2 g/dl (3.5-5.0); Albumin/Globulin Ratio 1.5 (1.1-1.8); Alkaline Phosphatase 87 U/L (38-126); Anion Gap 10.6 mEq/L (5-15); Aspartate Amino Transferase 26 U/L (17-59); Bilirubin,Total 0.6 mg/dl (0.2-1.3); Blood Urea Nitrogen 14 mg/dl (9-20); Calcium 10.1 mg/dl (8.4-10.2); Carbon Dioxide 26 mmol/L (22.0-30.0); Estimated Glomerular Filt Rate 99 ml/min (>60); GFR (African American) 120 ML/MIN (>60); Globulin 2.8 g/dL (1.3-3.2); Glucose 106 mg/dl (74-100)
[2021-07-29 07:12] LABS: Coronavirus 19, PCR Not Detected (NotDetected); Influenza A, PCR Not Detected (NotDetected); Influenza B, PCR Not Detected (NotDetected)
== END ==
PROVIDERS: PCP Nurse Practitioner Family; Visit Provider Podiatrist
DX: Z01.818 Encounter for other preprocedural examination (principal); Z11.52 Encounter for screening for COVID-19
CPT/HCPCS: 36415; 71046; 80053; 85025; 93005; C9803; U0003; U0005

== ENCOUNTER 2021-07-29 06:28 | Day surgery (SDC) | payer OTHER, SELFPAY ==
[2021-07-29 06:37] VITALS: BMI 32.2
[2021-07-29 06:45] VITALS: BP 125/89; PULSE 76; RESP 18; TEMP 36.4; O2SAT 100
--- NOTE | 2021-07-29 07:52 | HMH.OPNOTE ---
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 Chronic pain of right ankle 4. Pain of right heel 5. Nontraumatic tear of plantar fascia 6. Right ankle instability 7. Tenosynovitis of ankle 8. Obesity class 1 Post-op Diagnosis:: Same Procedure performed:: 1. Right calcaneus open bone biopsy x3 Surgeon:: Kayli Livingston DPM SINGEING TORCH OPERATOR:: Dipak Mccoy Anesthesia: MAC, local (0.5% marcaine plain) Estimated blood loss (mL): 5 Clinical Note:: Patient is a 60 year old male who presents with pain to right heel. CT shows right Calanceus IO Lipoma vs Bone tumor: Discussed differential diagnosis: Intraosseous lipoma, bone cyst, benign bone tumor, malignant bone tumor. Repeat right foot x-ray reviewed: unchanged. Reports increased pain, discussed staging surgery: stage 1) bone biopsy, stage 2) excision and curettage of bone cyst with bone graft packing versus en bloc calcaneal resection depending on results of the bone biopsies, lateral ankle ligament stabilization. The patient has been instructed on the planned procedure, all risk versus benefits of the procedure discussed. These include but are not limited to: bleeding, infection, nerve and blood vessel damage, need for further surgery, delay in healing of soft tissue or bone, failure of bones to heal, non-union, mal-union, failure of the implant/graft, weakening of the bone/stress fracture/pathologic fracture, prolonged pain and recovery, CRPS/RSD, DVT and anesthetic complications. No guarantees were given. All questions fully answered. The patient verbalized understanding and agreed to proceed with surgery. Written consent was obtained. Necessary labs and pre-op testing ordered and reviewed: CBC, CMP, CXR, EKG, covid. Medical clearance per PCPSerge Ramsey. *This is a planned stage surgery. Stage I: Right calcaneus bone biopsy. Stage II: Right bone cyst excision and curettage with bone graft packing versus en bloc calcaneal resection, lateral ankle ligament stabilization. Operative findings:: CT right foot: A well-circumscribed, lytic lesion is seen in the inferior body of the calcaneus measuring 4.3 x 2.9cm cm on sagittal reformatted images with central fluid component measuring 20 mm. This has a nonaggressive appearance and likely represents an intraosseous lipoma with cystic component. There are mild degenerative changes. Mild edema is seen at the heel pad. There are chronic calcifications inferior to the medial malleolus. IMPRESSION: Well-circumscribed cystic lesion in the inferior body of the calcaneus likely representing intraosseous lipoma with cystic component. Intraoperative fluoroscopy was utilized to correlate CT findings. There is no acute fracture or dislocation noted. The lateral cortex was then. When attempted to take the bone biopsy no mallet was needed as the bone was very soft and easily penetrated with a Jamshidi needle. Open bone biopsy x3 obtained from: Superior distal lesion, proximal lesion and the inferior most aspect of the same lesion. No purulence, drainage, malodor or signs of infection noted. *Once biopsy results have finalized we will proceed with planned stage II procedure. Operative note:: On this date and time patient was deemed an appropriate surgical candidate. With informed consent signed, the patient was taken to the operating theater room. The patient was positioned supine. MAC anesthesia was induced. No tourniquet used. IV Ancef infused. Right lower extremity was prepped and draped in normal sterile fashion. Pre-op right foot/ankle block given with 20 cc 0.5% marcaine plain. Right foot open bone biopsy x3: Attention was directed to the lateral foot where the calcaneus was marked out under intraoperative fluoroscopy. 15 blade used to make a stab incision x3 over the calcaneus laterally. Blunt dissection to the bone. A Jamshidi needle was inserted and used to remove specimen of the calcaneus bone. Bone to the lateral cortex did feel h
--- NOTE | 2021-07-29 08:07 | P.PN_ITS ---
[facility] Anesthesia Checklist - Structural Data Admitted From: Home Planned Operative Procedure/s: rt foot bone bx Consent for Planned Operative Procedure(s) Verified: Yes - Additional verifications Anesthesia Reactions: No Hx Blood Transfusions: No Blood Transfusion Reaction: No - Airway Assessment C-Spine Mobility Assessed: Yes TMJ Mobility Assessed: Yes Dentition: Good Dentition - Neurological Assessment Level of Consciousness: Awake, Alert, Appropriate - Anesthesia Plan Anesthesia Risk discussed: Yes Anesthesia Plan: Verified ASA Class: II Anesthesia Type: MAC [facility] History I have reviewed the patient's past medical history: Yes Medical History: Denies:: Cancer, Diabetes Mellitus Type 1, Diabetes Mellitus Type 2, Internal Pacemaker, MRSA, Seizures *Have you ever received a pneumonia vaccine?: No *Have you received a flu vaccine this season?: No Other Medical History: Denies: Blood Transfusion Reaction Anesthesia experience/problems:: none Other Surgeries: No: Pacemaker Amputation: No Fractures: No - *Social History Last grade of school completed: High school graduate Smoking Status: Former smoker #Yrs smoked (if former smoker): 3 Alcohol Intake: never Substance Use Type: denies use *Occupational Status:: employed Housing: house Household Members: spouse *Travel in the last 8 weeks: None Family Hx:: Cancer
--- NOTE | 2021-07-29 08:20 | XR_ITS ---
FINAL REPORT CLINICAL HISTORY: CALCANEOUS BX- ABRIL fluoro time: .14 FINDINGS: Fluoroscopic guidance was provided for the operating services. Two spot films were provided. 14 seconds of fluoroscopy time was utilized. IMPRESSION: 14 seconds of fluoroscopy time. Reviewed, Interpreted and Dictated by Sony Lozada MD Transcribed by Tony Vargas Authenticated by Sony Lozada MD on 07/29/2021 11:36:57 AM [facility]
[2021-07-29 08:30] VITALS: BP 115/81; PULSE 73; RESP 18; TEMP 36.1; O2SAT 94
[2021-07-29 08:40] VITALS: BP 115/83; PULSE 73; RESP 18; O2SAT 94
--- NOTE | 2021-07-29 08:45 | XR_ITS ---
FINAL REPORT CLINICAL HISTORY: Post op calc bone biopsy-bone cyst COMPARISON: July 14, 2021 FINDINGS: Right foot Three views were obtained. There is a 4.1 x 2.9 cm lucency in the anterior calcaneus with a central calcification. This has the typical appearance of an intraosseous lipoma. There is no acute fracture or dislocation. The visualized joint spaces are preserved. There is no acute soft tissue abnormality. IMPRESSION: Intraosseous lipoma in the anterior calcaneus. Reviewed, Interpreted and Dictated by Sony Lozada MD Transcribed by Tony Vargas Authenticated by Sony Lozada MD on 07/29/2021 11:36:57 AM [facility]
[2021-07-29 08:50] VITALS: BP 115/83; PULSE 73; RESP 18; O2SAT 95
[2021-07-29 08:57] VITALS: BP 122/86; PULSE 65; RESP 18; O2SAT 95
== END 2021-07-29 09:02 | disposition home or self-care (01) ==
LOC: OR 06:29
PROVIDERS: PCP Nurse Practitioner Family; Visit Provider Podiatrist
PROC: (CPT 20240; principal; 2021-07-29 07:30)
DX: D17.79 Benign lipomatous neoplasm of other sites (principal); M25.571 Pain in right ankle and joints of right foot; G89.29 Other chronic pain; M85.671 Other cyst of bone, right ankle and foot; M79.671 Pain in right foot; M25.371 Other instability, right ankle; M65.071 Abscess of tendon sheath, right ankle and foot
CPT/HCPCS: 20240; 73620; 73630; 76000; 96374

== ENCOUNTER → 2021-09-07 10:28 | Outpatient (CLI) | payer OTHER, SELFPAY ==
[2021-09-07 11:49] LABS: Basophils # 0.1 K/mm3 (0-0.2); Basophils % 2.1 % (0.1-2.0); Eosinophils # 0.2 K/mm3 (0.0-0.4); Eosinophils % 4.1 % (0.1-12.0); Hematocrit 44.6 % (42.0-52.0); Lymphocytes # 1.8 K/mm3 (0.7-4.5); Lymphocytes % 32.7 % (10-50); Mean Corpuscular HGB Conc 33.6 g/dL (31.8-35.4); Mean Corpuscular Volume 89.2 fl (80-94); Mean Platelet Volume 8.4 fl (7.4-10.4); Monocytes # 0.4 K/mm3 (0.1-1.0); Monocytes % 7.1 % (1.7-9.3); Neutrophils # 2.9 K/mm3 (1.8-7.8); Neutrophils % 54.1 % (37.0-80.0); Platelet Count 265 K/mm3 (142-424); Red Blood Count 4.99 M/mm3 (4.60-6.20); Red Cell Distribution Width 13.4 % (11.5-17.5); White Blood Count 5.3 K/mm3 (4.8-10.8)
[2021-09-07 12:22] LABS: Chloride 104 mmol/L (98-107); Sodium 138 mmol/L (136-145)
[2021-09-07 12:23] LABS: Potassium 4.5 mmoL/L (3.5-5.1)
[2021-09-07 12:25] LABS: Alanine Aminotransferase 24 U/L (12-78); Albumin Level 4.5 g/dl (3.5-5.0); Albumin/Globulin Ratio 1.6 (1.1-1.8); Alkaline Phosphatase 74 U/L (38-126); Anion Gap 13.5 mEq/L (5-15); Aspartate Amino Transferase 26 U/L (17-59); Bilirubin,Total 0.7 mg/dl (0.2-1.3); Blood Urea Nitrogen 16 mg/dl (9-20); Carbon Dioxide 25 mmol/L (22.0-30.0); Estimated Glomerular Filt Rate 99 ml/min (>60); GFR (African American) 120 ML/MIN (>60); Globulin 2.8 g/dL (1.3-3.2); Total Protein,Serum 7.3 g/dl (6.3-8.2)
[2021-09-07 12:26] LABS: Glucose 104 mg/dl (74-100)
== END ==
PROVIDERS: PCP Nurse Practitioner Family; Visit Provider Podiatrist
DX: Z01.818 Encounter for other preprocedural examination (principal); Z11.59 Encounter for screening for other viral diseases
CPT/HCPCS: 36415; 80053; 85025; C9803; U0003; U0005

== ENCOUNTER 2021-09-09 10:11 | Day surgery (SDC) | payer OTHER, SELFPAY ==
[2021-09-09] VITALS (10 sets, daily range): BP systolic 112–142; BP diastolic 62–88; PULSE 60–81; RESP 12–18; TEMP 6.1–43; O2SAT 94–99
--- NOTE | 2021-09-09 11:23 | P.PN_ITS ---
[facility] Anesthesia Checklist - Patient Identification Patient Identification: Arm Band - Structural Data Admitted From: Home Planned Operative Procedure/s: Right Ankle Stabilization Consent for Planned Operative Procedure(s) Verified: Yes Verified Documents: Surgical Consent, History and Physical - NPO Status Verified Time NPO: 00:00 - Additional verifications Anesthesia Reactions: No Hx Blood Transfusions: No Blood Transfusion Reaction: No - Airway Assessment C-Spine Mobility Assessed: Yes (mp2) TMJ Mobility Assessed: Yes Dentition: Good Dentition - Neurological Assessment Level of Consciousness: Awake, Alert - Anesthesia Plan Anesthesia Risk discussed: Yes Anesthesia Plan: Verified ASA Class: II Anesthesia Type: General w/block (right popliteal/adductor canal. Risks/benefit explained. Pt verbalized understanding) - Preoperative Comments Pre-Operative Comments: [facility] History I have reviewed the patient's past medical history: Yes Medical History: Denies:: Cancer, Diabetes Mellitus Type 1, Diabetes Mellitus Type 2, Internal Pacemaker, MRSA, Seizures *Have you ever received a pneumonia vaccine?: No *Have you received a flu vaccine this season?: No Other Medical History: Denies: Blood Transfusion Reaction Anesthesia experience/problems:: nac Other Surgeries: Yes: Hernia Repair, Other. No: Pacemaker Amputation: No Fractures: Yes - *Social History Smoking Status: Former smoker #Yrs smoked (if former smoker): 3 Alcohol Intake: never Substance Use Type: denies use *Occupational Status:: employed Housing: house Household Members: spouse *Travel in the last 8 weeks: None Family Hx:: No significant family history
--- NOTE | 2021-09-09 13:20 | HMH.OPNOTE ---
Date of procedure: 09/09/21 Pre-op Diagnosis:: 1. Right ankle instability 2. Intraosseous lipoma 3. Bone cyst of foot 4. Right peroneal tenosynovitis of ankle 5. Gastrocnemius equinus of right lower extremity 6. Synovitis of right ankle 7. Chronic pain of right ankle 8. Obesity (BMI 30.0-34.9) Post-op Diagnosis:: Same Procedure performed:: Stage II: 1. Right bone cyst excision and curettage with allograft bone graft packing 2. Right lateral ankle ligament stabilization 3. Right ankle medial arthrotomy, synovectomy 4. Right gastrocnemius recession 5. Right peroneal (brevis) tendon repair with allograft 6. Right peroneus (longus) teosynovectomy 7. Application of posterior splint Surgeon:: Kayli Livingston DPM PUBLICITY WRITER:: Kishor Turk Anesthesia: GETA, regional (right popliteal nerve block) Estimated blood loss (mL): 30 Clinical Note:: Patient is a 60 year old male who presents with pain to right heel. CT shows right Calanceus IO Lipoma vs Bone tumor: Discussed differential diagnosis: Intraosseous lipoma, bone cyst, benign bone tumor, malignant bone tumor. Reports increased pain, discussed staging surgery: stage 1) bone biopsy, stage 2) excision and curettage of bone cyst with bone graft packing based on results of the bone biopsies, lateral ankle ligament stabilization. The patient has been instructed on the planned procedure, all risk versus benefits of the procedure discussed. These include but are not limited to: bleeding, infection, nerve and blood vessel damage, need for further surgery, delay in healing of soft tissue or bone, failure of bones to heal, non-union, mal-union, failure of the implant/graft, weakening of the bone/stress fracture/pathologic fracture, prolonged pain and recovery, CRPS/RSD, DVT and anesthetic complications. No guarantees were given. All questions fully answered. The patient verbalized understanding and agreed to proceed with surgery. Written consent was obtained. Necessary labs and pre-op testing ordered and reviewed: CBC, CMP, CXR, EKG, covid. Medical clearance per EDDI Ramsey. *This is a planned stage surgery. Stage I: Right calcaneus bone biopsy on 07/29/21. Stage II: Right bone cyst excision and curettage with bone graft packing lateral ankle ligament stabilization, possible gastrocnemius recession. Necessary labs and pre-op testing ordered: CBC, CMP, CXR, EKG, covid. Medical clearance per PCP-Luigi Ramsey. Has Rew 7.5mg, Zofran, Motrin 800mg. Operative findings:: Right gastroc equinus and ankle instability noted with an increase in the anterior drawer. ATFL, CFL torn attenuated. Synovitis noted in the ankle joint. Significant synovitis and fluid in the lateral ankle and subtalar joint. Synovitis also surrounding the peroneus longus tendon. Peroneus brevis tendon had synovitis and also a tear with less than 1 retraction distally. There was some fibrous scarring like the tendon had ruptured and tried to repair itself. Calcaneus had a bone cyst. Previously planned two-stage surgery; stage I biopsy showed intraosseous lipoma. Cyst was soft with the bone having a yellow discoloration. No deep signs of infection noted. Operative note:: On this date and time patient was deemed an appropriate surgical candidate. With informed consent signed, the patient was taken to the operating theater room after a regional nerve block by anesthesia. The patient was positioned supine. General anesthesia was induced. Right thigh tourniquet at 250 mmHg. IV Ancef infused. Right lower extremity was prepped and draped in normal sterile fashion. Right gastrocnemius recession: Attention was directed to the posterior leg where a longitudinal incision was made. Dissection down to the level of the peritenon which was transected linearly. Gastroc exposed. With the foot in dorsiflexion, 15 blade used to make a transverse Monroe incision releasing the contracture. Area was flushed with saline. 3-0 Vicryl used to reapproximate deep tissue. 4-0 [place]
--- NOTE | 2021-09-09 15:00 | XR_ITS ---
FINAL REPORT CLINICAL HISTORY: Post op cyst grafting FINDINGS: LEFT HEEL 3 views were obtained. There is no acute fracture or dislocation. There are postoperative changes of the lateral malleolus. There is postoperative change of the calcaneal body. A splint is present. There is no soft tissue abnormality. IMPRESSION: Postoperative changes with no acute bony abnormality. Reviewed, Interpreted and Dictated by Omid Lo III, MD Transcribed by Ursula Carrillo Authenticated and [facility]
--- NOTE | 2021-09-09 15:00 | XR_ITS ---
FINAL REPORT CLINICAL HISTORY: Post op ankle stabilization COMPARISON: July 29, 2021 of the right foot FINDINGS: RIGHT ANKLE 3 views of the right ankle were obtained. There is no acute fracture or dislocation. The mortise is intact. There are postoperative changes of the lateral malleolus. There is postoperative change of the calcaneal body. A splint is present. Soft tissues are unremarkable. IMPRESSION: Postoperative changes with no acute bony abnormality. Reviewed, Interpreted and Dictated by Omid Lo III, MD Transcribed by Ursula Carrillo Authenticated and [facility]
--- NOTE | 2021-09-09 15:13 | XR_ITS ---
FINAL REPORT CLINICAL HISTORY: CYST GRAFTING Fluoro time:31 Dose 1:23mGy FINDINGS: FLUORO TIME PROCEDURE: Fluoroscopy in the operating room. FINDINGS: Fluoroscopy time was provided by the radiology department for the clinical service. 1 film was obtained. Fluoroscopy exposure time: 0:31 IMPRESSION: See above Reviewed, Interpreted and Dictated by Omid Lo III, MD Transcribed by Jane Uriarte Authenticated and [facility]
--- NOTE | 2021-09-09 15:41 | P.PN_ITS ---
[facility] Anesthesia Record Part I Intake, IV Amount: 1,000 Estimated blood loss (mL): 10 Urine output (mL): 0 Blood Pressure: 127/80 SaO2: 94 Pulse Rate: 79 Respiratory Rate: 13 Temperature: 97.2 F Patient is:: Drowsy, Oral/Nasal airway Stable to PACU at:: 15:37
--- NOTE | 2021-09-10 08:03 | HMH.ANESII ---
[facility] Anesthesia Record Part II Discharge Time: 16:07 Destination: Surgical Day Care (OP Surgery) PACU nurse assessment reviewed?: Yes Patient Condition:: Good Anesthesia Complications:: None Swallowing reflex intact?: Yes Cyanosis?: No Blood Pressure: 130/86 Pulse Rate: 79 Temperature: 97.6 F Mental Status: Alert & Oriented Pain level:: 0 Nausea and/or vomitting:: None Intake, IV Amount: 0
[2021-09-10 08:04] VITALS: BP 130/86; PULSE 79; TEMP 36.4
== END 2021-09-09 16:40 | disposition home or self-care (01) ==
LOC: OR 10:12
PROVIDERS: PCP Nurse Practitioner Family; Visit Provider Podiatrist
PROC: (CPT 27696; principal; 2021-09-09 11:45)
DX: D17.79 Benign lipomatous neoplasm of other sites (principal); M24.571 Contracture, right ankle; M25.571 Pain in right ankle and joints of right foot; M85.671 Other cyst of bone, right ankle and foot; Z87.891 Personal history of nicotine dependence; M65.871 Other synovitis and tenosynovitis, right ankle and foot; M25.371 Other instability, right ankle
CPT/HCPCS: 27696; 27687; 28103; 27625; 73600; 73610; 73650; 76000; 96374; C1713; C1762; J2405; Q4211

== ENCOUNTER → 2021-09-24 16:48 | Outpatient (CLI) | payer OTHER, SELFPAY | PROVIDERS: Visit Provider Podiatrist | DX: Z98.890 Other specified postprocedural states (principal); T81.49XA Infection following a procedure, other surgical site, initial encounter; M85.671 Other cyst of bone, right ankle and foot | CPT/HCPCS: 87070; 87205 ==

== ENCOUNTER 2021-11-12 08:00 | Outpatient (RCR) | payer OTHER, SELFPAY ==
--- NOTE | 2021-10-26 09:02 | HMH.PTOPEV ---
PT Outpatient Evaluation Rehab PT Outpatient Evaluation Start: 10/26/21 08:02 Freq: Status: Active Protocol: Document 10/26/21 08:19 CARLOS (Rec: 10/26/21 09:02 CARLOS [id number]) Electronically Signed By Kali Bruno, PT 10/26/21 08:19 Outpatient Therapy Subjective History Subjective History Pt presents s/p right ankle sx . for peroneal repair, calcaneal bone cyst excision, gastroc resection on 09/09/21. Pt reports previous h/o right ankle/foot pain and instability for months, however, reports improved right ankle/foot s/s since sx. Pt reports some lingering right ankle swelling and stiffness. next follow up Chief Complaint Pain,Stiff,Swelling Symptom Type Ache,Sharp,Dull Symptoms Relieved By Rest/Positioning,Ice Symptoms Aggravated By Standing,Physical Activity, Walking Prior Functional Limitations Driving,Standing,Walking, Stairs Current Functional Limitations Driving,Standing,Walking, Stairs Symptom Description Constant but Variable Level of pain today (0-10) 1 Pain scale - at its best (0-10) 1 Pain scale - at its worst (0-10) 4 Ankle/Foot Eval Gait Observation General Gait Pattern Observation Antalgic Gait,Decrease Weight Bear (R) Palpation Tenderness right Ankle/Foot Palpation Findings Tenderness Ankle/Foot Palpation Overall Comment 1-2/4 MEDIAL AND LATERAL SX. INCISION ROM Ankle/Foot Dorsiflexion w/Knee Extended +2 Active Range Motion (degrees) Ankle/Foot Plantar Flexion Active Range 2-30 of Motion (degrees) Ankle/Foot Eversion Active Range of 0-10 Motion (degrees) Ankle/Foot Inversion Active Range of 0-20 Motion (degrees) MMT Ankle Dorsiflexion Strength Grade 4 Good Ankle Plantarflexion Strength Grade 4 Good Foot Eversion Strength Grade 4 Good Foot Inversion Strength Grade 4 Good Outpatient Therapy Assessment Impairments Problems/Impairmments Palpation Tenderness,Impaired Range of Motion,Impaired Strength,Impaired Gait Pattern ,Impaired Walking,Impaired Standing,Impaired Driving, Impaired Stair Climbing, Increased Edema,Subjective
== END 2021-11-12 08:05 | disposition home or self-care (01) ==
LOC: PT 08:00
PROVIDERS: PCP Podiatrist; Visit Provider Podiatrist
DX: M25.371 Other instability, right ankle (principal); M85.671 Other cyst of bone, right ankle and foot; Z98.890 Other specified postprocedural states
CPT/HCPCS: 97010; 97014; 97016; 97110; 97140; 97163; G0283

== ENCOUNTER → 2021-11-17 14:08 | Outpatient (POV) | payer OTHER, SELFPAY | PROVIDERS: Visit Provider Dermatology | DX: Z00.00 Encounter for general adult medical examination without abnormal findings (principal) ==

== ENCOUNTER → 2021-11-26 10:47 | Outpatient (CLI) | payer OTHER, SELFPAY ==
--- NOTE | 2021-11-26 10:55 | XR_ITS ---
FINAL REPORT CLINICAL HISTORY: pain COMPARISON: September 09, 2021 FINDINGS: AP, oblique, and lateral views of the right ankle were obtained. The previous plaster cast is no longer present. There is a surgical anchor in the lateral malleolus. There is no acute fracture or dislocation. 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 There is degenerative joint disease. The ankle mortise is intact. There is lateral soft tissue edema. IMPRESSION: 1. No acute osseous abnormality of the right ankle. 2. Lateral soft tissue edema. Reviewed, Interpreted and Dictated by Thalia Williamson MD Transcribed by Jane Uriarte Authenticated and [facility]
== END ==
PROVIDERS: PCP Nurse Practitioner Family; Visit Provider Podiatrist
DX: M25.571 Pain in right ankle and joints of right foot (principal)
CPT/HCPCS: 73610

== ENCOUNTER 2022-04-12 14:52 | Emergency (ER) | payer OTHER, SELFPAY ==
[2022-04-12 15:30] VITALS: BP 117/86; PULSE 71; RESP 18; TEMP 36.8; O2SAT 98; BMI 28.8
--- NOTE | 2022-04-12 15:45 | EXP.UTC ---
Discharge Plan Disposition Patient Disposition: Home, Self-Care Condition: Good Prescriptions Prescriptions: New cephalexin 500 mg capsule 500 mg PO QID Qty: 40 0RF Referrals Follow up/Referrals: Efrain Culver MD [Primary Care Provider] - See instructions Activity Restrictions/Add. Instructions Additional Instructions/Restrictions: Keep the wound clean and dry. Watch the for signs of infection, such as redness, swelling, drainage, fever. etc. Take tylenol or ibuprofen for pain. Follow up with your regular doctor. Return in 7 days to have the sutures removed. GO TO THE ER FOR ANY WORSENING SYMPTOMS OR CONCERNS. Take the antibiotics as directed. Clinical Impressions Clinical Impression: Laceration of left ear Instructions Patient Instructions: DI for Laceration Repair, DI for Laceration Repair -- Simple Discharge ED Provider: Adrian Ceron [facility] General Stated complaint: [id number] cut on left ear, home accident Time Seen by Provider: 04/12/22 15:45 History of Present Illness Provider Complaint: He states that he was using his david hog to clear some land when it threw a gravel and hit him on left ear. He has a laceration on his auricle. He denies any other injury. His tetanus immunization is not up to date. Related Data Previous Rx's Medication Instructions Recorded cephalexin 500 mg capsule 500 mg PO QID #40 caps 04/12/22 Allergies Allergy/AdvReac Type Severity Reaction Status Date / Time No Known Allergies Allergy Verified 03/09/22 08:36 [facility] Disclaimer: The information contained in this section may have been updated after the patient was seen, as this information can be updated by other users. Surgical History H/O hernia repair History of ankle surgery Social History Smoking Status: Former smoker pack-years: 3 second hand exposure: No alcohol intake: never substance use type: denies use current occupational status: employed Travel in the last 8 weeks: None household members: spouse housing: house current occupation: self - [employer] current occupational exposures/hazards: No caffeine: No ROS Obtained: Yes All systems reviewed & no additional complaints except as documented Constitutional Constitutional: Denies chills and Denies fever(s) Eyes Eyes: Denies eye discharge ENT Ears, Nose, Mouth, and Throat: Denies dizziness, Denies otalgia and Denies sore throat Cardiovascular Cardiovascular: Denies chest pain Respiratory Respiratory: Denies shortness of breath, Denies chest congestion, Denies cough, Denies stridor and Denies wheezing Gastrointestinal Gastrointestingal: Denies nausea or vomiting Musculoskeletal Musculoskeletal: Reports system reviewed and no additional complaints, except as documented and Denies arthralgias Integumentary/Breasts Skin/Breast: Reports as per HPI Neurologic Neurologic: Denies dizziness and Denies paresthesias Allergic/Immunologic Allergic/Immunologic: Denies wheezing Physical Exam General General appearance: alert and in no apparent distress Head Head exam: atraumatic, normocephalic and normal inspection Eye Eye exam: Present normal appearance, PERRL and EOMI ENT ENT exam: Present normal exam, normal oropharynx, mucous membranes moist and TM's normal bilaterally; Absent normal external ear exam Neck Neck exam: Present normal inspection, full ROM and trachea midline; Absent meningismus or lymphadenopathy Chest Chest inspection: Present normal inspection and symmetric chest wall rise; Absent tenderness Respiratory Respiratory exam: Present normal lung sounds bilaterally; Absent respiratory distress Cardiovascular Cardiovascular exam: Present regular rate and normal rhythm; Absent JVD Abdominal Exam Abdominal exam: Present soft and normal bowel sounds; Absent distention, tenderness or guarding
[2022-04-12 16:58] VITALS: BP 117/86; PULSE 71; RESP 19; TEMP 36.8; O2SAT 98
== END 2022-04-12 16:58 | disposition home or self-care (01) ==
PROVIDERS: Emergency Provider Nurse Practitioner Family; PCP Family Medicine
DX: S01.312A Laceration without foreign body of left ear, initial encounter (principal); Y93.H9 Activity, other involving exterior property and land maintenance, building and construction; Z23 Encounter for immunization
CPT/HCPCS: 12011; 90471; 90715; 99213; G0463

== ENCOUNTER 2022-11-07 09:37 | Emergency (ER) | payer OTHER, SELFPAY ==
[2022-11-07 09:50] VITALS: BP 134/89; PULSE 101; RESP 19; TEMP 36.9; O2SAT 98; BMI 30.5
--- NOTE | 2022-11-07 10:04 | EXP.UTC ---
Discharge Plan Disposition Patient Disposition: Home, Self-Care Condition: Good Prescriptions Prescriptions: New benzonatate 100 mg capsule 100 mg PO TID PRN (Reason: cough) Qty: 30 0RF azithromycin [Zithromax Z-Gabriel] 250 mg tablet See Rx Instructions .ROUTE .COMPLEX 5 Days Qty: 6 0RF Rx Instructions: For 250 mg dose pack: take 500 mg today (day 1), then 250 mg for 4 days (days 2-5) methylprednisolone [Medrol (Gabriel)] 4 mg tablets,dose pack See Rx Instructions .Route .COMPLEX 6 Days Qty: 21 0RF Rx Instructions: taper pack; No Action cephalexin 500 mg capsule 500 mg PO QID Qty: 40 0RF Referrals Follow up/Referrals: Efrain Culver MD [Primary Care Provider] - See instructions Activity Restrictions/Add. Instructions Additional Instructions/Restrictions: *Monitor Temp, Over the counter Motrin or Tylenol as directed/as needed Tylenol every 4 hours and Motrin every 6 hours (as long as your family doctor has told you that you can take it) for fever or pain. and straight to ER if unable to lower temp less than 101.0 after medication given *Warm salt water gargles may help to soothe the throat *Throat Lozenges? *Warm fluids like tea with honey may help to soothe the throat? *Sleep elevated *Humidifier/Vaporizer Your throat swab was sent for culture. Those results are typically sent to your primary care. Be sure to follow up in 2-3 days with your family doctor/primary care physician if no improvement so they can review those result and treat if necessary. If you don?t have a primary care doctor, I recommend you get one but in the mean time, you will have to return to a walk in clinic Follow up IMMEDIATELY for new or worsening symptoms or no Noticeable improvement over the next 48-72 hours. 911 for difficulty breathing or swallowing You were tested for today for Upper Respiratory Panel with COVID19 your test result should be back in the next 24hrs You may check your results on the [facility] [employer] [facility] Portal Clinical Impressions Clinical Impression: URI (upper respiratory infection) Qualifiers: URI type: unspecified URI Qualified Code(s): J06.9 - Acute upper respiratory infection, unspecified Instructions Patient Instructions: DI for COVID-19 (Suspected or Confirmed ), COVID-19 Viral Test Discharge ED Provider: Nimisha Tolbert [facility] HPI General Stated complaint: fever, body aches, cough, h/a Time Seen by Provider: 11/07/22 10:04 History of Present Illness Provider Complaint: Patient states that he started getting sick on States that he started having body aches and chills, States as the weekend went on he started with headache, scratchy throat and body aches and chills continued and having fever States that he feels like he did when he had COVID Related Data Previous Rx's Medication Instructions Recorded cephalexin 500 mg capsule 500 mg PO QID #40 caps 04/12/22 azithromycin 250 mg tablet See Rx Instructions PO .COMPLEX 5 11/07/22 (Zithromax Z-Gabriel) days #6 tabs benzonatate 100 mg capsule 100 mg PO TID PRN cough #30 caps 11/07/22 methylprednisolone 4 mg tablets in See Rx Instructions .Route 11/07/22 a dose pack (Medrol (Gabriel)) .COMPLEX 6 days #21 tabs Allergies Allergy/AdvReac Type Severity Reaction Status Date / Time No Known Allergies Allergy Verified 03/09/22 08:36 [facility] Disclaimer: The information contained in this section may have been updated after the patient was seen, as this information can be updated by other users. Surgical History H/O hernia repair History of ankle surgery Social History Smoking Status: Former smoker pack-years: 3 second hand exposure: No alcohol intake: never substance use type: denies use current occupational status: employed Travel in the last 8 weeks: None household members: s
[2022-11-07 10:05] LABS: Microscopic, Urine URINE MICROSCOPIC (MICROSCOPIC)
[2022-11-07 10:09] LABS: Appearance,Urine CLEAR (Clear); Bilirubin,Urine Negative (Negative); Blood, Urine 1+ (Negative); Color,Urine YELLOW (Yellow); Glucose,Urine (UA) Negative (Negative); Ketones,Urine Negative (Negative); Leukocyte Esterase,Urine Negative (Negative); Nitrate,Urine Negative (Negative); Protein,Urine 1+ (Negative); Specific Gravity, Urine >= 1.030 (1.005-1.030)
[2022-11-07 10:26] LABS: UTC Influenza A Antigen Negative (Negative); UTC Influenza B Antigen Negative (Negative)
[2022-11-07 10:27] LABS: UTC Strep Screen (Rapid) Negative (Negative)
[2022-11-07 10:29] VITALS: BP 134/89; PULSE 101; RESP 19; TEMP 36.9; O2SAT 98
[2022-11-07 10:31] LABS: Mucus,Urine 1+ /lpf; Squamous Epithelial Cell,Urine Occasional #/hpf (0-5); WBC,Urine Occasional #/hpf (0-3)
[2022-11-07 10:32] LABS: Bacteria,Urine Trace /lpf
== END 2022-11-07 10:31 | disposition home or self-care (01) ==
PROVIDERS: Emergency Provider Nurse Practitioner; PCP Family Medicine
DX: J06.9 Acute upper respiratory infection, unspecified (principal); B34.9 Viral infection, unspecified; R51.9 Headache, unspecified; R50.9 Fever, unspecified; Z87.891 Personal history of nicotine dependence
CPT/HCPCS: 81001; 87804; 87880; 99212; 99214; G0463

== ENCOUNTER 2023-03-23 15:23 | Emergency (ER) | payer OTHER, SELFPAY ==
[2023-03-23 15:45] VITALS: BP 126/81; PULSE 89; RESP 18; TEMP 36.8; O2SAT 98; BMI 38.1
--- NOTE | 2023-03-23 16:01 | EXP.UTC ---
Discharge Plan Disposition Patient Disposition: Home, Self-Care Condition: Good Prescriptions Prescriptions: New amoxicillin [amoxicillin] 875 mg tablet 875 mg PO Q12H Qty: 20 0RF methylprednisolone 4 mg Tablets,Dose Pack 4 mg PO DIRECTED Qty: 21 0RF Referrals Follow up/Referrals: Efrain Culver MD [Primary Care Provider] - See instructions Activity Restrictions/Add. Instructions Additional Instructions/Restrictions: Take tylenol or ibuprofen for pain or fever. Take the medications as directed. Follow up with your regular doctor. GO TO THE ER FOR ANY WORSENING SYMPTOMS Clinical Impressions Clinical Impression: Benign paroxysmal positional vertigo, Otitis media, Acute viral syndrome Instructions Patient Instructions: Middle Ear Infection, Benign Paroxysmal Positional Vertigo, DI for Viral Syndrome Discharge ED Provider: Adrian Ceron [facility] General Stated complaint: dizzy Mode of Arrival: Ambulatory Source of Information: Patient Limitations: No Limitations Time Seen by Provider: 03/23/23 16:01 Description of Symptoms (Recalled from Triage Doc. by RN): right upper back pain, an right arm pain, cough, dizzy at times HEENT Symptoms (Recalled from RN notes): No Resp Symptoms (Recalled from RN notes): No Skin Symptoms (Recalled from RN notes): No MS Symptoms (Recalled from RN notes): Yes Functional Status (Recalled from RN notes): n/a History of Present Illness Provider Complaint: He states that he has had cough, pleuritic back pain, ear pain, and intermittent dizziness for the past 3 days. He denies any chest pain. He denies shortness of breath. Related Data Previous Rx's Medication Instructions Recorded amoxicillin 875 mg tablet 875 mg PO Q12H #20 tabs 03/23/23 methylprednisolone 4 mg tablets in 4 mg PO DIRECTED #21 tabs 03/23/23 a dose pack Allergies Allergy/AdvReac Type Severity Reaction Status Date / Time No Known Allergies Allergy Verified 03/23/23 16:55 Worker's Comp Is this a Worker's Comp case?: No [facility] Disclaimer: The information contained in this section may have been updated after the patient was seen, as this information can be updated by other users. Surgical History H/O hernia repair History of ankle surgery Social History Smoking Status: Former smoker second hand exposure: No alcohol intake: never substance use type: denies use current occupational status: employed Travel in the last 8 weeks: None household members: spouse housing: house current occupation: self - [employer] current occupational exposures/hazards: No caffeine: No ROS Obtained: Yes All systems reviewed & no additional complaints except as documented Constitutional Constitutional: Denies body ache, Denies chills, Denies fever(s), Denies headache(s) and Denies weakness Eyes Eyes: Reports system reviewed and no additional complaints, except as documented and Denies loss of vision ENT Ears, Nose, Mouth, and Throat: Reports as per HPI, Denies disequilibrium, Reports dizziness, Denies headache(s), Denies neck pain and Reports vertigo Cardiovascular Cardiovascular: Reports system reviewed and no additional complaints, except as documented, Denies chest pain and Denies syncope Respiratory Respiratory: Denies shortness of breath, Denies chest congestion, Reports cough, Denies stridor and Denies wheezing Gastrointestinal Gastrointestingal: Reports system reviewed and no additional complaints, except as documented; Denies abdominal pain, diarrhea or vomiting Musculoskeletal Musculoskeletal: Reports as per HPI, Reports back pain, Denies neck pain, Denies numbness and Denies tingling Integumentary/Breasts Skin/Breast: Reports system reviewed and no additional complaints, except as documented and Denies rash Neurologic Neurologic: Denies disequilibrium, Reports dizziness, D
--- NOTE | 2023-03-23 16:07 | XR_ITS ---
FINAL REPORT TECHNIQUE: Chest PA & Lateral CLINICAL HISTORY: cough, plueritic back pain COMPARISON: 07/28/2021 FINDINGS: 2 views of the chest were performed. The heart size is normal. The mediastinum is within normal limits. There is no acute cardiopulmonary process. There are mild chronic changes in the lungs. There are no pleural effusions. There is no pneumothorax. The bony thorax appears intact. IMPRESSION: Mild chronic changes without acute cardiopulmonary process. Reviewed, Interpreted and Dictated by Sony Lozada MD Transcribed by Ursula Carrillo Authenticated and . [facility]
--- NOTE | 2023-03-23 16:40 | ECG_ITS ---
APPROVED REPORT Exam: Resting ECG HR:86 bpm ECG Measurements Heart Rate 86 AXES DC 158 P 70 QRSd 109 QRS -55 QT 389 T 36 QTc 433 Conclusion SINUS RHYTHM LEFT ANTERIOR FASCICULAR BLOCK LVH Late R wave progression ABNORMAL ECG UNCONFIRMED REPORT Electronically signed by : Eriberto Valadez MD 03/24/2023 19:47:09
[2023-03-23 17:15] VITALS: BP 126/81; PULSE 89; RESP 18; TEMP 36.8; O2SAT 98
== END 2023-03-23 17:15 | disposition home or self-care (01) ==
PROVIDERS: Emergency Provider Nurse Practitioner Family; PCP Family Medicine
DX: M54.6 Pain in thoracic spine (principal); M79.601 Pain in right arm; H66.93 Otitis media, unspecified, bilateral; H81.10 Benign paroxysmal vertigo, unspecified ear; I44.4 Left anterior fascicular block; R05.9 Cough, unspecified; Z87.891 Personal history of nicotine dependence
CPT/HCPCS: 71046; 93005; 99212; 99214; G0463

== ENCOUNTER 2023-04-27 07:08 | Outpatient (CLI) | payer OTHER, SELFPAY ==
--- NOTE | 2023-04-27 07:08 | CT_ITS ---
FINAL REPORT CLINICAL HISTORY: sinusitis COMPARISON: None FINDINGS: The paranasal sinuses are well aerated. There is mild lobular mucoperiosteal thickening in the left maxillary sinus. There is minimal left sphenoid soft tissue thickening present as well. The ostiomeatal units are patent bilaterally. There is no fracture. There are no air-fluid levels. IMPRESSION: Minimal mucoperiosteal thickening in the left sphenoid sinus and mild mucoperiosteal thickening in the left maxillary sinus. Otherwise unremarkable CT of the sinuses. Reviewed, Interpreted and Dictated by Sony Lozada MD Transcribed by Taylor Stein Authenticated and [facility]
== END 2023-04-27 23:59 ==
LOC: RAD 07:08
PROVIDERS: PCP Nurse Practitioner Family; Visit Provider Nurse Practitioner
DX: H65.191 Other acute nonsuppurative otitis media, right ear (principal); H92.02 Otalgia, left ear; J32.9 Chronic sinusitis, unspecified; G89.29 Other chronic pain; Z87.891 Personal history of nicotine dependence
CPT/HCPCS: 70486

== ENCOUNTER 2023-06-20 11:05 | Outpatient (POV) | payer OTHER, SELFPAY | END 2023-06-20 23:59 | disposition home or self-care (01) | LOC: SC 11:06 | PROVIDERS: Visit Provider Specialist/Technologist | DX: Z00.00 Encounter for general adult medical examination without abnormal findings (principal) ==

== ENCOUNTER 2023-06-22 15:44 | Outpatient (CLI) | payer OTHER, SELFPAY ==
--- NOTE | 2023-06-22 15:44 | US_ITS ---
FINAL REPORT CLINICAL HISTORY: hx nodules COMPARISON: 12/06/2019 FINDINGS: THYROID ULTRASOUND: The right lobe of the thyroid gland measures 4.5 x 1.7 x 1.4 cm in size. The largest nodule in the right lobe of the thyroid gland measures 10 x 9 x 6 mm in size, solid, hypoechoic, a TI-RADS category 4 nodule. Multiple other smaller nodules are present. The left lobe of the thyroid gland measures 5 x 1.5 x 1.5 cm in size. The largest nodule in the left lobe of the thyroid measures 19 x 13 x 13 mm in size, is mostly solid and isoechoic, a TI-RADS category 3 nodule. This nodule previously measured 24 x 16 x 18 mm in size. There is an upper pole nodule on the left which measures 11 x 10 x 7 mm in size, solid, isoechoic, a TI-RADS category 3 nodule. There is also a mid left lobe nodule, 7 x 5 x 5 mm in size, mostly solid and hypoechoic, a TI-RADS category 4 nodule. The isthmus of the thyroid gland measures 4 mm in thickness. IMPRESSION: Multiple bilateral thyroid nodules as described above. Direct comparison is difficult, however there are no new dominant masses, and visually the nodules noted on the previous exam are either stable or decreased in size. Would consider 12-month follow-up thyroid ultrasound for further evaluation. Reviewed, Interpreted and Dictated by Omid Lo III, MD Transcribed by Taylor Stein Authenticated and [facility]
== END 2023-06-22 23:59 ==
LOC: RAD 15:44
PROVIDERS: PCP Nurse Practitioner; Visit Provider Nurse Practitioner
DX: E04.1 Nontoxic single thyroid nodule (principal)
CPT/HCPCS: 76536

== ENCOUNTER 2024-04-26 09:43 | Outpatient (CLI) | payer OTHER, SELFPAY ==
--- NOTE | 2024-04-26 09:49 | XR_ITS ---
FINAL REPORT TECHNIQUE: Chest PA & Lateral CLINICAL HISTORY: Shortness of breath x 2 weeks COMPARISON: 03/23/2023 FINDINGS: Two views of the chest were performed. The heart size is normal. The mediastinum is within normal limits. There is no acute cardiopulmonary process. There are no pleural effusions. There is no pneumothorax. The bony thorax appears intact. IMPRESSION: No acute cardiopulmonary process. Reviewed, Interpreted and Dictated by Sony Lozada MD Transcribed by Valeria Claire Authenticated and [facility]
[2024-04-26 13:14] LABS: Basophils % 0.3 % (0.1-2.0); Eosinophils # 0.2 K/mm3 (0.0-0.4); Eosinophils % 3.4 % (0.1-12.0); Hematocrit 43.4 % (42.0-52.0); Hemoglobin 14.8 g/dL (14.1-18.0); Lymphocytes # 2.8 K/mm3 (0.7-4.5); Lymphocytes % 40.7 % (10-50); Mean Corpuscular HGB Conc 34.1 g/dL (31.8-35.4); Mean Corpuscular Hemoglobin 29.2 pg (27.0-31.2); Mean Corpuscular Volume 85.6 fl (80-94); Monocytes # 0.6 K/mm3 (0.1-1.0); Monocytes % 9.3 % (1.7-9.3); Neutrophils # 3.2 K/mm3 (1.8-7.8); Neutrophils % 46.2 % (37.0-80.0); Platelet Count 271 K/mm3 (142-424); Red Blood Count 5.07 M/mm3 (4.60-6.20); Red Cell Distribution Width 12.6 % (11.5-17.5); White Blood Count 6.8 K/mm3 (4.8-10.8)
[2024-04-26 13:44] LABS: Hemoglobin A1C 5.7 % (4.0-6.0)
[2024-04-26 14:07] LABS: Albumin Level 4.5 g/dl (3.5-5.0); Chloride 104 mmol/L (98-107); Sodium 139 mmol/L (136-145)
[2024-04-26 14:08] LABS: Potassium 4.6 mmoL/L (3.5-5.1)
[2024-04-26 14:10] LABS: Alanine Aminotransferase 24 U/L (12-78); Albumin/Globulin Ratio 1.7 (1.1-1.8); Alkaline Phosphatase 102 U/L (38-126); Anion Gap 17.6 mEq/L (5-15); Aspartate Amino Transferase 24 U/L (17-59); Bilirubin,Total 0.8 mg/dl (0.2-1.3); Blood Urea Nitrogen 20 mg/dl (9-20); Carbon Dioxide 22 mmol/L (22.0-30.0); Cholesterol 229 mg/dl (140-200); Estimated Glomerular Filt Rate 98 ml/min (>60); GFR (African American) 119 ML/MIN (>60); Globulin 2.7 g/dL (1.3-3.2); Total Protein,Serum 7.2 g/dl (6.3-8.2); Triglycerides 115 mg/dl (30-150); VLDL Cholesterol 23 mg/dL (0-40)
[2024-04-26 14:11] LABS: Calcium 9.9 mg/dl (8.4-10.2); Chol/HDL Ratio 5.3 (1-3.5); Glucose 94 mg/dl (74-100); HDL Cholesterol 43 mg/dl (40-60)
[2024-04-26 14:41] LABS: Thyroid Stimulating Hormone 0.59 uIU/mL (0.465-4.68)
[2024-04-26 14:59] LABS: Hepatitis C Ab Qual. W/ RFX NEGATIVE (Negative)
[2024-04-26 15:46] LABS: HIV Combo NEGATIVE (Negative)
== END 2024-04-26 23:59 | disposition home or self-care (01) ==
LOC: RAD 09:45
PROVIDERS: PCP Internal Medicine; Visit Provider Internal Medicine
DX: R06.00 Dyspnea, unspecified (principal); Z13.29 Encounter for screening for other suspected endocrine disorder; Z11.59 Encounter for screening for other viral diseases; Z13.1 Encounter for screening for diabetes mellitus; Z13.220 Encounter for screening for lipoid disorders; Z11.4 Encounter for screening for human immunodeficiency virus [HIV]
CPT/HCPCS: 71046; 80053; 80061; 83036; 84443; 85025; 86803; 87389

== ENCOUNTER 2024-05-02 07:45 | Outpatient (CLI) | payer OTHER, SELFPAY ==
[2024-05-02 08:45] VITALS: PULSE 79; PULSE 84
[2024-05-02] MEDS: ALBUTEROL 0.083% 2.5 MG/3 ML NEB IH (08:45)
== END 2024-05-02 23:59 | disposition home or self-care (01) ==
LOC: RT 07:46
PROVIDERS: PCP Internal Medicine; Visit Provider Internal Medicine
DX: R06.00 Dyspnea, unspecified (principal)
CPT/HCPCS: 94060; 94640; 94726; 94729; J7613

== ENCOUNTER 2024-06-13 07:51 | Outpatient (CLI) | payer OTHER, SELFPAY ==
--- NOTE | 2024-06-13 07:52 | US_ITS ---
FINAL REPORT TECHNIQUE: Sonographic images of the thyroid were obtained. CLINICAL HISTORY: History of thyroid nodule COMPARISON: 06/22/2023 FINDINGS: THYROID ULTRASOUND The right thyroid gland measures 4.4 x 1.6 x 2.4 cm. The parenchyma shows normal echogenicity. There are multitude of nodules in the right lobe which are hypoechoic and solid. The largest is in the superior pole measuring up to 1.4 cm and appears larger than that seen previously. Other nodules measuring up to 1 cm are stable. There is a cystic and solid nodule in the lower pole of the right lobe measuring up to 1.3 cm. The left thyroid gland measures 4.2 x 2.0 x 2.4 cm. The parenchyma shows normal echogenicity. There are multiple nodules in the left lobe. The dominant focus is solid, isoechoic to hypoechoic measuring up to 1.8 cm and is essentially stable. There are multiple other smaller nodules which appear stable. IMPRESSION: Redemonstration of a multitude of bilateral thyroid nodules which are generally stable. However, there is increase in size of a 1.4 cm nodule in the superior right lobe, TI-RADS 4. Recommend follow-up in 1 year per TI-RADS criteria. Reviewed, Interpreted and Dictated by Sony Lozada MD Transcribed by Sanam Joaquin Authenticated and [facility]
[2024-06-13 09:56] LABS: Free T4 (Free Thyroxine) 0.99 ng/dl (0.78-2.19)
[2024-06-13 10:10] LABS: Thyroid Stimulating Hormone 0.88 uIU/mL (0.465-4.68)
== END 2024-06-13 23:59 | disposition home or self-care (01) ==
LOC: RAD 07:52
PROVIDERS: PCP Internal Medicine; Visit Provider Nurse Practitioner
DX: E04.1 Nontoxic single thyroid nodule (principal)
CPT/HCPCS: 36415; 76536; 84439; 84443

== ENCOUNTER → 2024-07-12 11:54 | Day surgery (SDC) | payer OTHER, SELFPAY ==
[2024-07-10 17:20] VITALS: BMI 31.6
[2024-07-12 12:55] VITALS: BP 117/80; PULSE 63; RESP 18; TEMP 36.1; O2SAT 98
[2024-07-12] MEDS: LACTATED RINGERS 1000ML 1,000 ML 50 ML IV (13:01)
--- NOTE | 2024-07-12 13:45 | EXP.ANES.CKL ---
[facility] Disclaimer: The information contained in this section may have been updated after the patient was seen, as this information can be updated by other users. Medical History (Updated 06/21/24 @ 09:28 by Carmen Alfaro MA) Pressure sensation in right ear Thyroid Nodule Normal hearing test of both ears TMJ (dislocation of temporomandibular joint) Cough Left otitis media Acute viral syndrome Otitis media URI (upper respiratory infection) Laceration of left ear Skin lesion Overweight (BMI 25.0-29.9) Right ankle instability Edema of right ankle Calculus of kidney Maxillary sinusitis, acute Influenza Surgical History History of ankle surgery H/O hernia repair History of ankle surgery Family History Other No significant family history Social History Smoking Status: Former smoker second hand exposure: No alcohol intake: never substance use type: denies use current occupational status: employed Travel in the last 8 weeks: None household members: spouse housing: house current occupation: self - [employer] current occupational exposures/hazards: No caffeine: No Have you lived/traveled outside [place] in past 30 days?: No Contact w/someone who lives/traveled outside US past 30 days?: No Exposure to someone with infectious disease in past 14 days?: No Do you have a fever (greater than 100.4 F or 38 C)?: No Have you tested positive for COVID-19: No Exposed to someone with COVID-19 in past 14 days?: No Do you have a sore throat?: No Do you have a cough?: No Do you have any weakness?: No Do you have any diarrhea?: No Are you experiencing any unusual bleeding?: No Do you have any muscle aches/pain?: No Do you have any abdominal pain?: No Are you experiencing loss of taste or smell?: No [facility] Anesthesia Checklist Patient Identification Patient Identification: Arm Band Structural Data Admitted From: Home Planned Operative Procedure/s: Colonoscopy Consent for Planned Operative Procedure(s) Verified: Yes Verified Documents: Surgical Consent and History and Physical NPO Status Verified Time NPO: 10:00 (finished prep) Additional verifications Anesthesia Reactions: No Hx Blood Transfusions: No Blood Transfusion Reaction: No Airway Assessment Mallampati Score:: Class II C-Spine Mobility Assessed: Yes TMJ Mobility Assessed: Yes Dentition: Good Dentition Neurological Assessment Level of Consciousness: Awake, Alert and Appropriate Anesthesia Plan Anesthesia Risk discussed: Yes Anesthesia Plan: Verified ASA Class: II Anesthesia Type: MAC
--- NOTE | 2024-07-12 14:40 | P.HP_ITS ---
History of Present Illness *Admission Date: 07/12/24 *Reason for visit:: Surveillance colonoscopy *History of present illness: Mr. Miller is a 63-year-old gentleman who is here for follow-up surveillance colonoscopy. His last colonoscopy was 11 years ago. He does have a family history of colon cancer (2 paternal uncles and a grandmother). The examination is deemed medically necessary for surveillance colonoscopy. The patient has been seen, interviewed and examined prior to the procedure by both myself and the anesthesia provider. [facility] Disclaimer: The information contained in this section may have been updated after the patient was seen, as this information can be updated by other users. Medical History (Updated 07/12/24 @ 14:51 by Chilo Greenfield II, MD) Pressure sensation in right ear Thyroid Nodule Normal hearing test of both ears TMJ (dislocation of temporomandibular joint) Cough Left otitis media Acute viral syndrome Otitis media URI (upper respiratory infection) Laceration of left ear Skin lesion Overweight (BMI 25.0-29.9) Right ankle instability Edema of right ankle Calculus of kidney Maxillary sinusitis, acute Influenza Surgical History History of ankle surgery H/O hernia repair History of ankle surgery Family History Other No significant family history Social History Smoking Status: Former smoker second hand exposure: No alcohol intake: never substance use type: denies use current occupational status: employed Travel in the last 8 weeks: None household members: spouse housing: house current occupation: self - [employer] current occupational exposures/hazards: No caffeine: No Have you lived/traveled outside [place] in past 30 days?: No Contact w/someone who lives/traveled outside US past 30 days?: No Exposure to someone with infectious disease in past 14 days?: No Do you have a fever (greater than 100.4 F or 38 C)?: No Have you tested positive for COVID-19: No Exposed to someone with COVID-19 in past 14 days?: No Do you have a sore throat?: No Do you have a cough?: No Do you have any weakness?: No Do you have any diarrhea?: No Are you experiencing any unusual bleeding?: No Do you have any muscle aches/pain?: No Do you have any abdominal pain?: No Are you experiencing loss of taste or smell?: No Other Medical History Have you received the Flu Vaccine for this season: No Have you received the Pneumonia Vaccine: No Review of Systems Review of Systems Review of systems (narrative): Negative *Cardiovascular Comments: Negative *Gastrointestinal Comments: Negative *Genitourinary Comments: Negative *Musculoskeletal Comments: Negative *Neurologic Comments: Negative Meds Home Medications and Allergies Home Medications ?Medication ?Instructions ?Recorded ?Confirmed ?Type fluticasone propionate 50 1 spray intranasal DAILY #10 mL 04/16/23 07/12/24 Rx mcg/actuation nasal spray,suspension (Flonase Allergy Relief) levocetirizine 5 mg tablet 5 mg PO DAILY 07/12/24 07/12/24 History New Prescriptions to Start Prescriptions: Allergies Allergy/AdvReac Type Severity Reaction Status Date / Time No Known Allergies Allergy Verified 06/21/24 09:26 Exam Data for Last 24 hours Vital signs and Labs for Last 24 Hours: Temp Pulse Resp BP Pulse Ox O2 Del Method 97.0 F L 63 18 117/80 98 Room Air 07/12/24 12:55 07/12/24 12:55 07/12/24 12:55 07/12/24 12:55 07/12/24 12:55 07/12/24 12:55 I & O for Last 24 hours: Intake & Output 07/09/24 07/10/24 07/11/24 07/12/24 23:59 23:59 23:59 23:59 Weight 246 lb *Routine HEENT Exam Head: Present normocephalic Eye: Present EOMI and PERRL ENT: Present mucous membranes moist *Routine Neck Exam Neck: Present supple *Routine Respiratory Exam Respiratory: Present CTA bilaterally *Routine Cardiovascular Exam Cardiovascular: Present RRR *Routine Abdominal Exam Abdominal: Present soft and normoactive bowel sounds; Absent tenderness *Routine Rectal Exam Rectal:: deferred *Routine Genitalia Exam Genitalia:: deferred *Routine Extremities Exam Extremities: Absent cyanosis, clubbing or edema *Routine Skin Exam Skin: Present warm; Absent rash *Routine Neurological Exam Neurological: Present alert and oriented X3 Assessment and Plan *Assessment and plan (1) Family history of colon cancer: Status: Acute Category: Medical Code(s): Z80.0 - Family history of malignant neoplasm of digestive organs (2) Screening for colon cancer: Status: Acute Category: Medical Code(s): Z12.11 - Encounter for screening for malignant neoplasm of colon Plan A/P: 1. Screening/surveillance for colon cancer with last colonoscopy 11 years ago is the preprocedural diagnosis. The patient does have a strong family history (2 paternal uncles and a maternal grandmother) with colon cancer. The patient will be anesthetized/sedated using MAC sedation. The patient has been seen and examined. Cardiac and lung assessment prior to the examination is stable. Proceed with planned screening/surveillance colonoscopy.
[2024-07-12 14:52] VITALS: O2SAT 97
--- NOTE | 2024-07-12 14:52 | HMH.PROCNOTE ---
[facility] Procedure Note Date: 07/12/24 Time: 15:16 Procedure Note:: Colonoscopy Procedure Report: Colonoscopy with cold snare polypectomy Endoscopist: Chilo Greenfield II, MD Referring physician: Andrew Young DO Date of Procedure: July 12, 2024 Equipment: Olympus 190 variable stiffness pediatric colonoscope Sedation: MAC sedation Indication: Mr. Miller is a 63-year-old gentleman who is here for follow-up screening/surveillance colonoscopy. His last colonoscopy was 11 years ago. He does have a strong family history of colon cancer (2 paternal uncles with colon cancer in late 40s or 50s and maternal grandmother at an older age). He reports no abdominal pain, weight loss, change in his bowel habits or rectal bleeding. He does have chronic GERD and manages this with omeprazole or OTC antacids as needed. Procedure: Prior to the procedure, a history and physical exam was performed, and patient's medications and allergies were reviewed. The risks, benefits and alternatives of the sedation and procedure were discussed with the patient. All questions were answered and informed consent was obtained. The patient was brought to the procedure room. Patient identification and proposed procedure were verified by the physician and the nurse. The patient was placed in a left lateral decubitus position and the scope was passed under direct vision. Throughout the procedure, the patient's blood pressure, pulse, and oxygen saturations were monitored continuously. The colonoscopy was accomplished without difficulty. The patient tolerated the procedure well. Findings: On digital rectal examination there was normal rectal tone. There were no external hemorrhoids. The prostate was 2+, smooth, soft, symmetric without nodules. The colonoscope was introduced through the anal canal to the rectum and advanced to the cecum. The ileocecal valve and appendiceal orifice were identified. The scope was advanced a short distance into the ileum which appeared grossly normal. The scope was then withdrawn into the colon. The cecum, ascending and transverse colon and mucosa were grossly normal. There were scattered diverticuli throughout the descending and sigmoid colon (LEFT colon). Within the rectum there was a diminutive 3 to 4 mm polyp that was removed via cold snare polypectomy. Upon retroflexion within the rectum there were grade 2 internal hemorrhoids. The preparation was fair throughout with [place] Preparation Score of 7 out of 9. The cecal time was 12 minutes. Impression: 1. Diminutive hyperplastic appearing rectal polyp 2. Left-sided diverticulosis 3. Grade 2 internal hemorrhoids Plan: I will follow-up the polyp histology. The patient does have 3 second-degree relatives with colon cancer. I would recommend continued surveillance colonoscopy at a 5-year interval. I would encourage psyllium bulking fiber supplementation on a maintenance basis.
[2024-07-12 15:20] VITALS: BP 102/75; PULSE 94; RESP 16; O2SAT 94
[2024-07-12 15:30] VITALS: BP 109/75; PULSE 90; RESP 16; O2SAT 92
[2024-07-12 15:39] VITALS: BP 115/66; PULSE 79; RESP 17; O2SAT 94
== END | disposition home or self-care (01) ==
PROVIDERS: PCP Internal Medicine; Visit Provider Internal Medicine Gastroenterology
PROC: 0DJD8ZZ Inspection of Lower Intestinal Tract, Via Natural or Artificial Opening Endoscopic (ICD-10-PCS; CPT 45378; principal; 2024-07-12 13:30)
DX: K63.5 Polyp of colon (principal); K57.30 Diverticulosis of large intestine without perforation or abscess without bleeding; Z80.0 Family history of malignant neoplasm of digestive organs; Z12.11 Encounter for screening for malignant neoplasm of colon
CPT/HCPCS: 45385; J7120

== ENCOUNTER 2024-10-22 03:13 | Emergency (ER) | payer OTHER, SELFPAY ==
[2024-10-22] VITALS (11 sets, daily range): BP systolic 106–166; BP diastolic 76–127; PULSE 68–87; RESP 12–17; TEMP 36.6–36.9; O2SAT 95–98; BMI 31.4
--- NOTE | 2024-10-22 03:19 | ECG_ITS ---
APPROVED REPORT Exam: Resting ECG HR:71 bpm ECG Measurements Heart Rate 71 AXES FL 163 P 54 QRSd 121 QRS -47 QT 423 T 25 QTc 445 Conclusion SINUS RHYTHM LEFT ANTERIOR FASCICULAR BLOCK [QRS AXIS <= -45, QR IN I, RS IN II] VOLTAGE CRITERIA FOR LVH [MEETS CRITERIA IN ONE OF: R(aVL), S(V1), R(V5), R(V5/V6)+S(V1)] PROBABLE LATERAL MYOCARDIAL INFARCTION , PROBABLY OLD [35 ms Q WAVE IN I/aVL/V5/V6] ABNORMAL ECG UNCONFIRMED REPORT Electronically signed by : SANJEEV WILSON, 10/24/2024 01:21:04
--- NOTE | 2024-10-22 03:19 | XR_ITS ---
PROCEDURE INFORMATION: Exam: XR Chest Exam date and time: 10/22/2024 3:37 AM Age: 64 years old Clinical indication: Sternal or substernal pain; Additional info: Cp TECHNIQUE: Imaging protocol: Radiologic exam of the chest. Views: 1 view. COMPARISON: No relevant prior studies available. FINDINGS: Lungs: Unremarkable. No consolidation. Pleural spaces: Unremarkable. No pleural effusion. No pneumothorax. Heart/Mediastinum: Unremarkable. No cardiomegaly. Bones/joints: Unremarkable. IMPRESSION: No acute findings.
--- NOTE | 2024-10-22 03:20 | HMH.EDGENADL ---
Discharge Plan Disposition Patient Disposition: Home, Self-Care Prescriptions Prescriptions: No Action fluticasone propionate [Flonase Allergy Relief] 50 mcg/actuation spray,suspension 1 spray intranasal DAILY Qty: 10 2RF Rx Instructions: administer into each nostril levocetirizine 5 mg tablet 5 mg PO DAILY Referrals Follow up/Referrals: Omid Tovar MD [Staff Physician, General Surgery] - See instructions Provider,MD Moriah [Primary Care Provider, Medical] - See instructions Activity Restrictions/Add. Instructions Additional Instructions/Restrictions: Please follow-up with your primary care provider. Please return to the emergency department if you develop any new or worsening symptoms or become concerned for your health. If you have want to talk with somebody about getting your gallbladder out, our surgeon's number is listed. Clinical Impressions Clinical Impression: Chest pain, Gallstones Print Language Print Language: Citizen Of [place] Discharge ED Provider: Montrell Adan General Adult HPI <Jewel Daniel MD - Last Filed: 10/22/24 06:59> General Chief complaint: Chest Pain Stated complaint: chest pain Time Seen by Provider: 10/22/24 03:19 History of Present Illness HPI narrative: 64-year-old male no past medical history presents for chest pain. He reports it has been ongoing for the last few hours. It is sharp, centrally located, radiating to the back. He thinks it could be his gallbladder. He took Tums at home without improvement. He denies any specific cardiac or pulmonary issues. Took Tylenol at home. Related Data Home Medications ?Medication ?Instructions ?Recorded ?Confirmed levocetirizine 5 mg tablet 5 mg PO DAILY 07/12/24 07/12/24 Previous Rx's ?Medication ?Instructions ?Recorded fluticasone propionate 50 1 spray intranasal DAILY #10 mL 04/16/23 mcg/actuation nasal spray,suspension (Flonase Allergy Relief) Allergies Allergy/AdvReac Type Severity Reaction Status Date / Time No Known Allergies Allergy Verified 06/21/24 09:26 PFSH <Jewel Daniel MD - Last Filed: 10/22/24 06:59> [facility] Disclaimer: The information contained in this section may have been updated after the patient was seen, as this information can be updated by other users. Medical History (Updated 10/22/24 @ 06:54 by Jewel Daniel MD) Pressure sensation in right ear Thyroid Nodule Normal hearing test of both ears TMJ (dislocation of temporomandibular joint) Cough Left otitis media Acute viral syndrome Otitis media URI (upper respiratory infection) Laceration of left ear Skin lesion Overweight (BMI 25.0-29.9) Right ankle instability Edema of right ankle Calculus of kidney Maxillary sinusitis, acute Influenza Surgical History History of ankle surgery H/O hernia repair History of ankle surgery Family History Other No significant family history Social History (Reviewed 06/21/24 @ : by Carmen Alfaro MA) Smoking Status: Unknown if ever smoked second hand exposure: No alcohol intake: never substance use type: denies use current occupational status: employed Travel in the last 8 weeks?: None household members: spouse housing: house current occupation: self - [employer] current occupational exposures/hazards: No caffeine: No Have you lived/traveled outside US in past 30 days?: No Contact w/someone who lives/traveled outside US past 30 days?: No Exposure to someone with infectious disease in past 14 days?: No Do you have a fever (greater than 100.4 F or 38 C)?: No Have you tested positive for COVID-19?: No Exposed to someone with COVID-19 in past 14 days?: No Do you have a sore throat?: No Do you have a cough?: No Do you have any weakness?: No Do you have any diarrhea?: No Are you experiencing any unusual bleeding?: No Do you have any muscle aches/pain?: No Do you have any abdominal pain?: No Are you experiencing loss of taste or smell?: No Other Medical History Have you received the Flu Vaccine for this season: No Have you received the Pneumonia Vaccine: No <Jewel Daniel MD - Last Filed: 10/22/24 06:59> ROS Obtained: Yes All systems reviewed & no additional complaints except as documented Physical Exam <Jewel Daniel MD - Last Filed: 10/22/24 06:59> General General appearance: alert and in no apparent distress Head Head exam: atraumatic and normocephalic Eye Eye exam: Present normal appearance, PERRL and EOMI ENT ENT exam: Present normal oropharynx and normal external ear exam Neck Neck exam: Present normal inspection and full ROM Chest Chest inspection: Present normal inspection and symmetric chest wall rise; Absent tenderness Respiratory Respiratory exam: Present normal lung sounds bilaterally; Absent respiratory distress Cardiovascular Cardiovascular exam: Present regular rate and normal rhythm Abdominal Exam Abdominal exam: Present soft; Absent distention, tenderness or guarding Extremities Exam Extremities exam: Present normal inspection; Absent edema or joint swelling Back Exam Back exam: Present normal inspection; Absent tenderness Neurological Exam Neurological exam: Present alert and oriented X3; Absent motor sensory deficit Psychiatric Psychiatric exam: Present normal affect and normal mood Skin Skin exam: Present warm, dry and normal color Lymphatic Lymphatic Findings: no adenopathy Medical Decision Making <Jewel Daniel MD - Last Filed: 10/22/24 06:59> Medical Records Medical records reviewed: Yes I reviewed the patient's medical records. Screening: Per USPSTF and CDC recommendations, given the prevalence of disease in our region, it is our hospital?s policy to screen for HIV and viral Hepatitis for all patients aged 18 and over and those with ongoing risk factors. Sami Inquiry Pt receiving controlled substance: No Sami was queried for this patient: No Vital Signs: 10/22/24 03:15 10/22/24 03:30 10/22/24 03:30 Temperature 97.8 F Temperature Source Oral Pulse Rate 83 Pulse Rate [Left] 71 Respiratory Rate 15 15 Blood Pressure 119/87 Blood Pressure [Right Arm] 166/127 H Blood Pressure Mean 97 Blood Pressure Mean [Right Arm] 140 02 Sat by Pulse Oximetry 98 95 Oxygen Delivery Method Room Air 10/22/24 03:45 10/22/24 04:21 10/22/24 05:00 Temperature Temperature Source Pulse Rate 81 79 75 Pulse Rate [Left] Respiratory Rate 13 12 15 Blood Pressure 123/89 Blood Pressure [Right Arm] Blood Pressure Mean 105 Blood Pressure Mean [Right Arm] 02 Sat by Pulse Oximetry 98 97 96 Oxygen Delivery Method 10/22/24 05:30 10/22/24 06:00 10/22/24 06:14 Temperature Temperature Source Pulse Rate 68 76 87 Pulse Rate [Left] Respiratory Rate 17 16 14 Blood Pressure 130/86 118/87 106/78 L Blood Pressure [Right Arm] Blood Pressure Mean 101 93 85 Blood Pressure Mean [Right Arm] 02 Sat by Pulse Oximetry 97 95 96 Oxygen Delivery Method 10/22/24 06:30 10/22/24 07:00 Temperature Temperature Source Pulse Rate 87 73 Pulse Rate [Left] Respiratory Rate 15 16 Blood Pressure 113/76 106/79 L Blood Pressure [Right Arm] Blood Pressure Mean 93 86 Blood Pressure Mean [Right Arm] 02 Sat by Pulse Oximetry 96 97 Oxygen Delivery Method Lab Data Lab results reviewed: Yes I reviewed the patient's lab results. Lab Results 10/22/24 03:15: WBC 7.8, RBC 4.77, Hgb 13.5 L, Hct 41.0 L, MCV 86.0, MCH 28.3, MCHC 32.9, RDW 12.5, Plt Count 248, MPV 9.6, Neut % (Auto) 45.2, Lymph % (Auto) 39.2, Guadalupe % (Auto) 9.9 H, Eos % (Auto) 5.3, Baso % (Auto) 0.3, Neut # (Auto) 3.5, Lymph # (Auto) 3.0, [place]upe # (Auto) 0.8, Eos # (Auto) 0.4, Baso # (Auto) 0.0, D-Dimer 0.62 H, Sodium 136, Potassium 3.9, Chloride 103, Carbon Dioxide 27, Anion Gap 9.9, BUN 14, Creatinine 0.80, Estimated Creat Clear 120, Estimated GFR 98, Est GFR ( Amer) 119, Glucose 116 H, Calcium 10.4 H, Total Bilirubin 0.5, AST 25, ALT 17, Alkaline Phosphatase 109, Troponin I 0.01, Total Protein 7.3, Albumin 4.2, Globulin 3.1, Albumin/Globulin Ratio 1.4, Lipase 66 10/22/24 06:15: Troponin I < 0.01 10/22/24 03:15 10/22/24 03:15 Orders (Tests/Meds): ED MEDICATIONS Generic Name Dose Route Start Last Admin Trade Name Freq PRN Reason Stop Dose Admin Nitroglycerin 0.4 mg 10/22/24 03:19 10/22/24 03:23 Nitroglycerin 0.4mg Sl Tablet SL 11/21/24 03:18 0.4 mg Q5MINP PRN Administration Chest Pain Discontinued Medications Generic Name Dose Route Start Last Admin Trade Name Freq PRN Reason Stop Dose Admin Aspirin 324 mg 10/22/24 03:19 10/22/24 03:23 Aspirin 81mg Chewable Tablet PO 10/22/24 03:20 324 mg ONCE ONE Administration Belladonna Alkaloids 60 ml 10/22/24 03:19 10/22/24 03:24 Belladonna Alkaloids 60 Ml Ml PO 10/22/24 03:20 60 ml ONCE ONE Administration ORDERS Category Date Time Status CXR --portable [XR chest portable] Stat Exams 10/22/24 03:19 Completed POCUS Point of Care (ER Only) Stat Exams 10/22/24 04:34 Completed CBC w/Auto Diff [Complete Blood Count Auto Diff] Stat Lab 10/22/24 03:15 Completed CMP [Comprehensive Metabolic Panel] Stat Lab 10/22/24 03:15 Completed D-Dimer Stat Lab 10/22/24 03:15 Completed Lipase Stat Lab 10/22/24 03:15 Completed Troponin I Q3H Lab 10/22/24 03:15 Completed Troponin I Q3H Lab 10/22/24 06:15 Completed ECG Data Tracing #1: I reviewed this ECG and interpreted as documented below: Sinus rhythm, rate of 71, no significant ischemic changes noted. ECG initial impression date: 10/22/24 ECG initial impression time: 03:13 HEART Score History (anamnesis): Moderately suspicious ECG: Normal Age: 45-65 years Risk factors: No known risk factors Troponin: </= normal limit HEART Score: 2 Medical Decision Narrative: 64-year-old male without significant past history presents for chest pain for the last few hours. History was obtained via interactive discussion with patient. On arrival, patient is [afebrile, hemodynamically stable, satting appropriately, alert, oriented x4, GCS 15], moving all extremities spontaneously. Full physical exam performed and significant for clear lungs bilaterally, no focal right upper quadrant tenderness. Differential includes but is not limited to ACS, PE, musculoskeletal chest pain, GERD, cholecystitis, pancreatitis, acute aortic syndrome. Patient was given aspirin, GI cocktail, nitro for symptomatic management and correction of underlying abnormalities. Workup initiated including CBC CMP troponin D-dimer chest x-ray EKG lipase bedside ultrasound of the gallbladder. On re-evaluation, patient [remains afebrile, HD stable.] Reports that the pain has essentially gone away after using the GI cocktail. Laboratory workup independently interpreted by me and significant for negative initial troponin, negative D-dimer by years criteria, no significant renal dysfunction or electrolyte derangement. Imaging independently interpreted by me and significant for clear lungs bilaterally. See radiology read for full review of final results. Bedside ultrasound shows stones in the gallbladder without cholecystitis. Patient was placed in ED observation status for serial cardiac enzymes and continued cardiac monitoring. At this time care handed off to oncoming physician. <Montrell Adan MD - Last Filed: 10/22/24 07:48> Vital Signs: 10/22/24 03:15 10/22/24 03:30 10/22/24 03:30 Temperature 97.8 F Temperature Source Oral Pulse Rate 83 Pulse Rate [Left] 71 Respiratory Rate 15 15 Blood Pressure 119/87 Blood Pressure [Right Arm] 166/127 H Blood Pressure Mean 97 Blood Pressure Mean [Right Arm] 140 02 Sat by Pulse Oximetry 98 95 Oxygen Delivery Method Room Air 10/22/24 03:45 10/22/24 04:21 10/22/24 05:00 Temperature Temperature Source Pulse Rate 81 79 75 Pulse Rate [Left] Respiratory Rate 13 12 15 Blood Pressure 123/89 Blood Pressure [Right Arm] Blood Pressure Mean 105 Blood Pressure Mean [Right Arm] 02 Sat by Pulse Oximetry 98 97 96 Oxygen Delivery Method 10/22/24 05:30 10/22/24 06:00 10/22/24 06:14 Temperature Temperature Source Pulse Rate 68 76 87 Pulse Rate [Left] Respiratory Rate 17 16 14 Blood Pressure 130/86 118/87 106/78 L Blood Pressure [Right Arm] Blood Pressure Mean 101 93 85 Blood Pressure Mean [Right Arm] 02 Sat by Pulse Oximetry 97 95 96 Oxygen Delivery Method 10/22/24 06:30 10/22/24 07:00 Temperature Temperature Source Pulse Rate 87 73 Pulse Rate [Left] Respiratory Rate 15 16 Blood Pressure 113/76 106/79 L Blood Pressure [Right Arm] Blood Pressure Mean 93 86 Blood Pressure Mean [Right Arm] 02 Sat by Pulse Oximetry 96 97 Oxygen Delivery Method Lab Data Lab Results 10/22/24 03:15: WBC 7.8, RBC 4.77, Hgb 13.5 L, Hct 41.0 L, MCV 86.0, MCH 28.3, MCHC 32.9, RDW 12.5, Plt Count 248, MPV 9.6, Neut % (Auto) 45.2, Lymph % (Auto) 39.2, Gu[place]upe % (Auto) 9.9 H, Eos % (Auto) 5.3, Baso % (Auto) 0.3, Neut # (Auto) 3.5, Lymph # (Auto) 3.0, [place] # (Auto) 0.8, Eos # (Auto) 0.4, Baso # (Auto) 0.0, D-Dimer 0.62 H, Sodium 136, Potassium 3.9, Chloride 103, Carbon Dioxide 27, Anion Gap 9.9, BUN 14, Creatinine 0.80, Estimated Creat Clear 120, Estimated GFR 98, Est GFR ( Amer) 119, Glucose 116 H, Calcium 10.4 H, Total Bilirubin 0.5, AST 25, ALT 17, Alkaline Phosphatase 109, Troponin I 0.01, Total Protein 7.3, Albumin 4.2, Globulin 3.1, Albumin/Globulin Ratio 1.4, Lipase 66 10/22/24 06:15: Troponin I < 0.01 Orders (Tests/Meds): ED MEDICATIONS Generic Name Dose Route Start Last Admin Trade Name Freq PRN Reason Stop Dose Admin Nitroglycerin 0.4 mg 10/22/24 03:19 10/22/24 03:23 Nitroglycerin 0.4mg Sl Tablet SL 11/21/24 03:18 0.4 mg Q5MINP PRN Administration Chest Pain Discontinued Medications Generic Name Dose Route Start Last Admin Trade Name Freq PRN Reason Stop Dose Admin Aspirin 324 mg 10/22/24 03:19 10/22/24 03:23 Aspirin 81mg Chewable Tablet PO 10/22/24 03:20 324 mg ONCE ONE Administration Belladonna Alkaloids 60 ml 10/22/24 03:19 10/22/24 03:24 Belladonna Alkaloids 60 Ml Ml PO 10/22/24 03:20 60 ml ONCE ONE Administration ORDERS Category Date Time Status CXR --portable [XR chest portable] Stat Exams 10/22/24 03:19 Completed POCUS Point of Care (ER Only) Stat Exams 10/22/24 04:34 Completed CBC w/Auto Diff [Complete Blood Count Auto Diff] Stat Lab 10/22/24 03:15 Completed CMP [Comprehensive Metabolic Panel] Stat Lab 10/22/24 03:15 Completed D-Dimer Stat Lab 10/22/24 03:15 Completed Lipase Stat Lab 10/22/24 03:15 Completed Troponin I Q3H Lab 10/22/24 03:15 Completed Troponin I Q3H Lab 10/22/24 06:15 Completed HEART Score HEART Score: 2 Medical Decision Narrative: 64-year-old male without significant past history presents for chest pain for the last few hours. History was obtained via interactive discussion with patient. On arrival, patient is [afebrile, hemodynamically stable, satting appropriately, alert, oriented x4, GCS 15], moving all extremities spontaneously. Full physical exam performed and significant for clear lungs bilaterally, no focal right upper quadrant tenderness. Differential includes but is not limited to ACS, PE, musculoskeletal chest pain, GERD, cholecystitis, pancreatitis, acute aortic syndrome. Patient was given aspirin, GI cocktail, nitro for symptomatic management and correction of underlying abnormalities. Workup initiated including CBC CMP troponin D-dimer chest x-ray EKG lipase bedside ultrasound of the gallbladder. On re-evaluation, patient [remains afebrile, HD stable.] Reports that the pain has essentially gone away after using the GI cocktail. Laboratory workup independently interpreted by me and significant for negative initial troponin, negative D-dimer by years criteria, no significant renal dysfunction or electrolyte derangement. Imaging independently interpreted by me and significant for clear lungs bilaterally. See radiology read for full review of final results. Bedside ultrasound shows stones in the gallbladder without cholecystitis. Patient was placed in ED observation status for serial cardiac enzymes and continued cardiac monitoring. At this time care handed off to oncoming physician. Dr. Adan Patient's repeat troponin was negative and on reassessment, patient report significant improvement in pain. Workup today is unremarkable for any acute pathology. Is felt that he is appropriate for discharge at this time. Will give referral to general surgeon for gallstones. Return precautions were given. All questions were answered. He demonstrated understanding and was in agreement with this plan. He was then discharged from the emergency department in stable condition. Procedures <Jewel Daniel MD - Last Filed: 10/22/24 06:59> Risk/Benefits of Procedure(s) Were Explained: Yes Limited Ultrasound Indication:: Limited RUQ ultrasound Indication: Chest pain Identified structures: -Gallbladder -Gallbladder wall -Common bile duct -Liver Findings: Sonographic Kincaid sign: Absent Gallstones: Present Sludge: Present Pericholecystic fluid: Absent Maximal GB wall thickness (mm): [normal is </= 3mm] Normal Common bile duct width (mm): [normal is </= 6mm] Unable to visualize Gallbladder width (cm): [normal is < 4cm] Grossly normal Gallbladder length (cm): [normal is < 10cm] Grossly normal Impression: Cholelithiasis without cholecystitis Images were saved to permanent archive The study was technically adequate CPT 70982-47 This study was performed by me, and I personally interpreted all images/videos. Critical Care <Jewel Daniel MD - Last Filed: 10/22/24 06:59> Critical Care Time Critical Care Time: No
[2024-10-22] MEDS: ASPIRIN 81MG CHEWABLE TABLET 324 MG PO (03:23)
[2024-10-22] MEDS: NITROGLYCERIN 0.4MG SL TABLET 0.4 MG SL (03:23)
[2024-10-22] MEDS: BELLADONNA ALKALOIDS 60 ML ML PO (03:24)
--- OUTSIDE RECORDS SUMMARY | 2024-10-22 03:24 | XMS_ITS | Clinical Summary ---
Author Organization Healthcare Address [address] [place] [address] Care Team Providers Care Adhesive Bonding Machine Operator Name Role Phone Eriberto Duval MD Primary Care Provider [phone] Family History Medical History Relation Name Comments Brain cancer Other 1 Breast cancer Other 2 Colon cancer Other 3 Relation Name Status Comments Other 1 Other 2 Other 3 Social History Tobacco Use Types Packs/Day Years Used Date Smoking Tobacco: Never Alcohol Use Standard Drinks/Week Comments No 0 (1 standard drink = 0.6 oz pure alcohol) Alcoholic Drinks/day: Never Drank Alcohol Sex and Gender Information Value Date Recorded Sex Assigned at Not on file Legal Sex Male 5:56 PM EDT Gender Identity Not on file Sexual Orientation Not on file Last Filed Vital Signs Vital Sign Reading Time Taken Comments Blood Pressure - - Pulse - - Temperature - - Respiratory Rate - - Oxygen Saturation - - Inhaled Oxygen Concentration - - Weight 107 kg (236 lb) 09/12/2013 1:18 PM EDT Height 188 cm (6' 2 ) 09/12/2013 1:18 PM EDT Body Mass Index 30.3 09/12/2013 1:18 PM EDT Plan of Treatment Not on file Care Teams Adhesive Bonding Machine Operator Relationship Specialty Start Date End Date Eriberto Duval MD [address] [place] [id number] PCP - General 08/15/20
--- OUTSIDE RECORDS SUMMARY | 2024-10-22 03:24 | XMS_ITS | Clinical Summary ---
Author Organization [facility] [place] [address] Care Team Providers Care Tray Checker Name Role Phone Unavailable Primary Care Provider Unavailabl e Social History Tobacco Use Types Packs/Day Years Used Date Smoking Tobacco: Never Assessed Sex and Gender Information Value Date Recorded Sex Assigned at Not on file Legal Sex Male 4:55 AM EDT Gender Identity Not on file Sexual Orientation Not on file Plan of Treatment Health Maintenance Due Date Last Done Comments Annual Wellness Exam 1965 Hepatitis C Screening 1980 DTaP/TDaP/Td (1 - Tdap) 1981 Cologuard 09/02/2007 Colon Cancer Screening 09/02/2007 Colonoscopy 09/02/2007 FIT 09/02/2007 Sigmoidoscopy 09/02/2007 Virtual Colonography 09/02/2007 Pneumococcal Vaccine 50+ (1 of 1 - PCV) 2012 Zoster (1 of 2) 2012 COVID-19 Vaccine (2023-2 5 season) 2023 Influenza Vaccine (#1) 2024 Hepatitis B Vaccine Aged Out No longe r eligible based on patient's age to complete this topic Meningococcal B Vaccine Aged Out No l onger eligible based on patient's age to complete this topic
[2024-10-22 03:49] LABS: Hematocrit 41.0 % (42.0-52.0); Hemoglobin 13.5 g/dL (14.1-18.0); Red Blood Count 4.77 M/mm3 (4.60-6.20); White Blood Count 7.8 K/mm3 (4.8-10.8)
[2024-10-22 03:50] LABS: Immature Granulocytes % 0.1 %; Mean Corpuscular HGB Conc 32.9 g/dL (31.8-35.4); Mean Corpuscular Hemoglobin 28.3 pg (27.0-31.2); Mean Corpuscular Volume 86.0 fl (80-94); Nucleated Red Blood Cells % 0 %; Platelet Count 248 K/mm3 (142-424); Red Cell Distribution Width-SD 39.1 fL
[2024-10-22 04:05] LABS: Potassium 3.9 mmoL/L (3.5-5.1); Sodium 136 mmol/L (136-145); Troponin I 0.01 ng/ml (0.00-0.034)
[2024-10-22 04:06] LABS: Alanine Aminotransferase 17 U/L (12-78); Albumin Level 4.2 g/dl (3.5-5.0); Albumin/Globulin Ratio 1.4 (1.1-1.8); Alkaline Phosphatase 109 U/L (38-126); Anion Gap 9.9 mEq/L (5-15); Aspartate Amino Transferase 25 U/L (17-59); Bilirubin,Total 0.5 mg/dl (0.2-1.3); Blood Urea Nitrogen 14 mg/dl (9-20); Calcium 10.4 mg/dl (8.4-10.2); Carbon Dioxide 27 mmol/L (22.0-30.0); Chloride 103 mmol/L (98-107); Creatinine Clearance Estimated 120 mL/min (50-200); Creatinine,Serum 0.80 mg/dl (0.66-1.25); Estimated Glomerular Filt Rate 98 ml/min (>60); GFR (African American) 119 ML/MIN (>60); Globulin 3.1 g/dL (1.3-3.2); Glucose 116 mg/dl (74-100); Total Protein,Serum 7.3 g/dl (6.3-8.2)
[2024-10-22 04:21] LABS: D-Dimer 0.62 ug/mL (0.0-0.5)
[2024-10-22 05:06] LABS: Lipase 66 U/L (23-300)
[2024-10-22 07:41] LABS: Troponin I < 0.01 ng/ml (0.00-0.034)
== END 2024-10-22 08:13 | disposition home or self-care (01) ==
PROVIDERS: Emergency Medicine; Emergency Provider Student in an Organized Health Care Education/Training Program
DX: R07.9 Chest pain, unspecified (principal); K80.20 Calculus of gallbladder without cholecystitis without obstruction
CPT/HCPCS: 71045; 80053; 83690; 84484; 85025; 85378; 93005; 99285

== ENCOUNTER 2024-10-26 07:52 | Outpatient (CLI) | payer OTHER, SELFPAY ==
--- OUTSIDE RECORDS SUMMARY | 2024-10-26 07:54 | XMS_ITS | Clinical Summary ---
Author Organization Healthcare Address [address] [place] [address] Care Team Providers Care Rn Admit Name Role Phone Eriberto Duval MD Primary Care Provider [phone] Family History Medical History Relation Name Comments [...] of Treatment Not on file Care Teams Rn Admit Relationship Specialty Start Date End Date Eriberto Duval MD [address] [place] [id number] PCP - General 08/15/20
--- OUTSIDE RECORDS SUMMARY | 2024-10-26 07:54 | XMS_ITS | Clinical Summary ---
Author Organization [facility] [place] [address] Care Team Providers Care Detective Private Eye Name Role Phone Unavailable Primary Care Provider [...]
--- NOTE | 2024-10-26 08:00 | US_ITS ---
FINAL REPORT TECHNIQUE: Multiple transverse and longitudinal images CLINICAL HISTORY: Right upper quad pain FINDINGS: Cholelithiasis with stones measuring up to 9 mm. No acute gallbladder disease. No evidence of biliary obstruction. No biliary ductal dilatation is appreciated. No fluid collections are seen. The liver demonstrates a few scattered simple cysts, largest measuring up to 4.5 cm. No solid liver mass seen. Limited portions of the right kidney are unremarkable. Pancreas is largely obscured. IMPRESSION: Cholelithiasis. Multiple benign hepatic cysts. Reviewed, Interpreted and Dictated by Luigi Reynolds MD Transcribed by Ursula Carrillo Authenticated and [facility]
== END 2024-10-26 23:59 | disposition home or self-care (01) ==
LOC: RAD 07:53
PROVIDERS: PCP Internal Medicine; Visit Provider Surgery
DX: K80.20 Calculus of gallbladder without cholecystitis without obstruction (principal); K76.89 Other specified diseases of liver
CPT/HCPCS: 76705

== ENCOUNTER 2025-03-19 10:41 | Outpatient (CLI) | payer OTHER, SELFPAY ==
[2025-03-19 09:00] VITALS: BMI 30.9
--- OUTSIDE RECORDS SUMMARY | 2025-03-19 11:01 | XMS_ITS | Clinical Summary ---
Author Organization [facility] [place] [address] Care Team Providers Care Manager Of Tax Name Role Phone Unavailable Primary Care Provider [...] Zoster (1 of 2) 2012 COVID-19 Vaccine (2024-2 6 season) 2024 Influenza Vaccine (#1) 2024 Hepatitis B Vaccine Aged Out No longe r eligible based on patient's age to complete this topic Meningococcal B Vaccine Aged Out No l onger eligible based on patient's age to complete this topic
--- OUTSIDE RECORDS SUMMARY | 2025-03-19 11:01 | XMS_ITS ---
Author Organization Unknown ENCOUNTERS Encounter Performer Location Date Diagnosis Diagnosis Status Pre Admit Jewel Daniel [facility] [address] [facility] [address] [address] [id number] Emergency Montrell Adan [facility] [address] [facility] [address] [address] [id number] [place] Pre Admit [facility] [address] [place] [facility] [address] [place] [address] [id number] Emergency [place] [id number] [facility] [address] [address] [id number] [place] Emergency [facility] [address] [facility] [address] [facility] [address] [id number] [place] Pre Admit [facility] [address] [facility] [address] [address] [id number] Emergency [facility] [address] [facility] [address] [place] [address] [id number] [place] [facility] [address] [facility] [address] [place] [address] [phone] [place] Emergency [facility] [address] [facility] [address] [address] [phone] [place] *Note: Encounters from your own facility or health system may be excluded. Allergies, Adverse Reactions, Alerts Allergen Type Severity Identification Date Medications Name Date Quantity Days Supplied GPI Number
--- OUTSIDE RECORDS SUMMARY | 2025-03-19 11:01 | XMS_ITS | Clinical Summary ---
Author Organization Healthcare Address [address] [place] [address] Care Team Providers Care Athletic Gear Custodian Name Role Phone Eriberto Duval MD Primary Care Provider [phone] Family History Medical History Relation Name Comments [...] of Treatment Not on file Care Teams Athletic Gear Custodian Relationship Specialty Start Date End Date Eriberto Duval MD [address] [place] [id number] PCP - General 08/15/20
--- NOTE | 2025-03-19 11:10 | ECG_ITS ---
APPROVED REPORT Exam: Resting ECG HR:72 bpm ECG Measurements Heart Rate 72 AXES AL 164 P 48 QRSd 111 QRS -44 QT 418 T 12 QTc 442 Conclusion SINUS RHYTHM LEFT AXIS DEVIATION [QRS AXIS < -30] PATTERN CONSISTENT WITH PULMONARY DISEASE INCOMPLETE RIGHT BUNDLE BRANCH BLOCK [90+ ms QRS DURATION, TERMINAL R IN V1/V2, 40+ ms S IN I/aVL/V4/V5/V6] MODERATE VOLTAGE CRITERIA FOR LVH, CONSIDER NORMAL VARIANT [MEETS CRITERIA IN ONE OF: R(aVL), S(V1), R(V5), R(V5/V6)+S(V1)] POSSIBLE SEPTAL MYOCARDIAL INFARCTION , PROBABLY OLD [30 ms Q WAVE IN V1/V2] ABNORMAL ECG UNCONFIRMED REPORT Electronically signed by : Eriberto Valadez MD 03/21/2025 08:25:56
[2025-03-19 11:20] LABS: Hematocrit 41.4 % (42.0-52.0); Hemoglobin 14.2 g/dL (14.1-18.0); Immature Granulocytes % 0.2 %; Mean Corpuscular HGB Conc 34.3 g/dL (31.8-35.4); Mean Corpuscular Hemoglobin 29.2 pg (27.0-31.2); Mean Corpuscular Volume 85.2 fl (80-94); Nucleated Red Blood Cells % 0 %; Platelet Count 247 K/mm3 (142-424); Red Blood Count 4.86 M/mm3 (4.60-6.20); Red Cell Distribution Width-SD 39.0 fL; White Blood Count 6.6 K/mm3 (4.8-10.8)
[2025-03-19 11:35] LABS: Alanine Aminotransferase 19 U/L (12-78); Albumin Level 4.4 g/dl (3.5-5.0); Albumin/Globulin Ratio 1.3 (1.1-1.8); Alkaline Phosphatase 111 U/L (38-126); Anion Gap 11.1 mEq/L (5-15); Aspartate Amino Transferase 32 U/L (17-59); Bilirubin,Total 0.6 mg/dl (0.2-1.3); Blood Urea Nitrogen 12 mg/dl (9-20); Calcium 9.7 mg/dl (8.4-10.2); Carbon Dioxide 22 mmol/L (22.0-30.0); Chloride 108 mmol/L (98-107); Creatinine Clearance Estimated 118 mL/min (50-200); Creatinine,Serum 0.80 mg/dl (0.66-1.25); Estimated Glomerular Filt Rate 98 ml/min (>60); GFR (African American) 119 ML/MIN (>60); Globulin 3.3 g/dL (1.3-3.2); Glucose 103 mg/dl (74-100); Potassium 4.1 mmoL/L (3.5-5.1); Sodium 137 mmol/L (136-145); Total Protein,Serum 7.7 g/dl (6.3-8.2)
== END 2025-03-19 23:59 | disposition home or self-care (01) ==
LOC: PREOP 10:42
PROVIDERS: PCP Internal Medicine; Visit Provider Surgery
DX: Z01.810 Encounter for preprocedural cardiovascular examination (principal); Z01.812 Encounter for preprocedural laboratory examination; I45.19 Other right bundle-branch block; R94.31 Abnormal electrocardiogram [ECG] [EKG]
CPT/HCPCS: 80053; 85025; 93005

== ENCOUNTER 2025-04-03 06:04 | Day surgery (SDC) | payer OTHER, SELFPAY ==
[2025-03-19 13:11] VITALS: BMI 30.9
[2025-04-03] VITALS (12 sets, daily range): BP systolic 115–129; BP diastolic 77–87; PULSE 66–76; RESP 16–18; TEMP 36.1–36.6; O2SAT 94–99; BMI 30.9
--- NOTE | 2025-04-03 06:16 | EXP.GEN.HP ---
HPI HPI HPI: Patient presents for cholecystectomy. I had initially seen him in the office on 10/23/2024. Patient is a 64-year-old male who was in the emergency department on 10/22/2024 with chest pain. He has known gallstones. When he had presented to the emergency department he felt that this was likely a gallbladder attack. This had been ongoing for several hours. It did resolve with GI cocktail. [id number] ultrasound revealed gallstones without evidence of cholecystitis. He was managed as an outpatient and sent for surgical consultation. He had not eaten anything for many hours prior but did eat [employer] the day before. He describes the pain is located in the substernal area with radiation to his back and right shoulder. Is unclear as to any inciting event. Patient does have some constipation and takes Metamucil and he states that he had taken some generic Metamucil the evening before. He states that he does have a liver cyst which has not been imaged in some time. Due to his history of apparent hepatic cyst I had him undergo dedicated gallbladder ultrasound. This reveals cholelithiasis. Multiple benign hepatic cysts. There were several gallstones measuring up to 9 mm. He had scattered simple cysts within the liver measuring up to 4.5 cm. When he was in the office on 11/08/2024 patient did wish to undergo cholecystectomy but wanted to wait until wintertime. He has had a few episodes of postprandial pain radiating into his back. [facility] Disclaimer: The information contained in this section may have been updated after the patient was seen, as this information can be updated by other users. Medical History Pressure sensation in right ear Thyroid Nodule Normal hearing test of both ears per Audiometric TMJ (dislocation of temporomandibular joint) Cough Left otitis media Acute viral syndrome Otitis media URI (upper respiratory infection) Laceration of left ear Skin lesion Overweight (BMI 25.0-29.9) Right ankle instability Edema of right ankle Calculus of kidney Maxillary sinusitis, acute Influenza Surgical History History of colonoscopy History of ankle surgery H/O hernia repair History of ankle surgery Family History Other No significant family history Social History (Updated 04/03/25 @ 06:35 by Dede Christensen RN) Smoking Status: Never smoker second hand exposure: No alcohol intake: never substance use type: denies use current occupational status: employed Travel in the last 8 weeks?: None household members: spouse housing: house current occupation: self - [employer] current occupational exposures/hazards: No caffeine: No Have you lived/traveled outside [place] in past 30 days?: No Contact w/someone who lives/traveled outside [place] past 30 days?: No Exposure to someone with infectious disease in past 14 days?: No Do you have a fever (greater than 100.4 F or 38 C)?: No Have you tested positive for COVID-19?: No Exposed to someone with COVID-19 in past 14 days?: No Do you have a sore throat?: No Do you have a cough?: No Do you have any weakness?: No Are you experiencing any nausea/vomitting?: No Do you have any diarrhea?: No Are you experiencing any unusual bleeding?: No Do you have any muscle aches/pain?: No Do you have any abdominal pain?: No Are you experiencing loss of taste or smell?: No Other Medical History Have you received the Flu Vaccine for this season: No Have you received the Pneumonia Vaccine: No Meds Home Medications and Allergies Home Medications ?Medication ?Instructions ?Recorded ?Confirmed ?Type fluticasone propionate 50 1 spray intranasal DAILY #10 mL 04/16/23 04/03/25 Rx mcg/actuation nasal spray,suspension (Flonase Allergy Relief) levocetirizine 5 mg tablet 5 mg PO DAILY 07/12/24 04/03/25 History New Prescriptions to Start Prescriptions: Allergies Allergy/AdvReac Type Severity Reaction Status Date / Time No Known Allergies Allergy Verified 04/03/25 06:14 Exam Constitutional Constitutional: no acute distress *Routine HEENT Exam Head: Present normocephalic Eye: Present EOMI and PERRL ENT: Present mucous membranes moist *Routine Neck Exam Neck: Present supple; Absent lymphadenopathy *Routine Respiratory Exam Respiratory: Present CTA bilaterally *Routine Cardiovascular Exam Cardiovascular: Present RRR *Routine Abdominal Exam Abdominal: Present soft and normoactive bowel sounds; Absent tenderness *Routine Rectal Exam Rectal:: deferred *Routine Genitalia Exam Genitalia:: deferred *Routine Extremities Exam Extremities: Absent cyanosis, clubbing or edema *Routine Skin Exam Skin: Present warm; Absent rash *Routine Neurological Exam Neurological: Present alert and oriented X3 Assessment and Plan *Assessment and plan (1) Gallstones: Status: Acute Category: Medical Code(s): K80.20 - Calculus of gallbladder without cholecystitis without obstruction Plan Laparoscopic possible open cholecystectomy.
[2025-04-03] MEDS: LACTATED RINGERS 1000ML 1,000 ML 25 ML IV (06:37)
--- NOTE | 2025-04-03 07:05 | EXP.ANES.CKL ---
[facility] Disclaimer: The information contained in this section may have been updated after the patient was seen, as this information can be updated by other users. Medical History Pressure sensation in right ear Thyroid Nodule Normal hearing test of both ears per Audiometric TMJ (dislocation of temporomandibular joint) Cough Left otitis media Acute viral syndrome Otitis media URI (upper respiratory infection) Laceration of left ear Skin lesion Overweight (BMI 25.0-29.9) Right ankle instability Edema of right ankle Calculus of kidney Maxillary sinusitis, acute Influenza Surgical History History of colonoscopy History of ankle surgery H/O hernia repair History of ankle surgery Family History Other No significant family history Social History (Updated 04/03/25 @ 06:35 by Dede Christensen RN) Smoking Status: Never smoker second hand exposure: No alcohol intake: never substance use type: denies use current occupational status: employed Travel in the last 8 weeks?: None household members: spouse housing: house current occupation: self - [employer] current occupational exposures/hazards: No caffeine: No Have you lived/traveled outside [place] in past 30 days?: No Contact w/someone who lives/traveled outside [place] past 30 days?: No Exposure to someone with infectious disease in past 14 days?: No Do you have a fever (greater than 100.4 F or 38 C)?: No Have you tested positive for COVID-19?: No Exposed to someone with COVID-19 in past 14 days?: No Do you have a sore throat?: No Do you have a cough?: No Do you have any weakness?: No Are you experiencing any nausea/vomitting?: No Do you have any diarrhea?: No Are you experiencing any unusual bleeding?: No Do you have any muscle aches/pain?: No Do you have any abdominal pain?: No Are you experiencing loss of taste or smell?: No [facility] Anesthesia Checklist Patient Identification Patient Identification: Arm Band and Verbal (Name & ) Structural Data Admitted From: Home Planned Operative Procedure/s: Laparoscopic Cholecystectomy Consent for Planned Operative Procedure(s) Verified: Yes Verified Documents: Surgical Consent NPO Status Verified Time NPO: 00:00 Chart Verification Results Verified: ECG Additional verifications Anesthesia Reactions: No Hx Blood Transfusions: No Blood Transfusion Reaction: No Airway Assessment Mallampati Score:: Class II C-Spine Mobility Assessed: Yes TMJ Mobility Assessed: Yes Dentition: Good Dentition Neurological Assessment Level of Consciousness: Awake, Alert and Appropriate Hx Seizures: No Numbness or tingling in extremities: No Anesthesia Plan Anesthesia Risk discussed: Yes Anesthesia Plan: Verified ASA Class: II Anesthesia Type: General
[2025-04-03] MEDS: 0.9 % SODIUM CHLORIDE 100 ML 200 ML IV (07:12)
[2025-04-03] MEDS: CEFAZOLIN 2GM VIAL 2 GM (07:12)
[2025-04-03] MEDS: SODIUM CHLORIDE IRRIG SOLUTION 3,000 ML 25 ML IR (07:31)
[2025-04-03] MEDS: LIDOCAINE 1% 20ML MDV 20 ML (07:31)
--- NOTE | 2025-04-03 08:30 | P.OP_ITS ---
Date of procedure: 04/03/25 Pre-op Diagnosis:: Symptomatic gallstones Post-op Diagnosis:: Same Procedure performed:: Laparoscopic cholecystectomy Surgeon:: Omid Tovar MD NUMERICAL [employer]OL TOOL PROGRAMMER:: Marco Antonio Courtney Anesthesia: GETEfrain Estimated blood loss (mL): 20 Clinical Note:: Patient presents for cholecystectomy. I had initially seen him in the office on 10/23/2024. Patient is a 64-year-old male who was in the emergency department on 10/22/2024 with chest pain. He has known gallstones. When he had presented to the emergency department he felt that this was likely a gallbladder attack. This had been ongoing for several hours. It did resolve with GI cocktail. [id number] ultrasound revealed gallstones without evidence of cholecystitis. He was managed as an outpatient and sent for surgical consultation. He had not eaten anything for many hours prior but did eat [employer] the day before. He describes the pain is located in the substernal area with radiation to his back and right shoulder. Is unclear as to any inciting event. Patient does have some constipation and takes Metamucil and he states that he had taken some generic Metamucil the evening before. He states that he does have a liver cyst which has not been imaged in some time. Due to his history of apparent hepatic cyst I had him undergo dedicated gallbladder ultrasound. This reveals cholelithiasis. Multiple benign hepatic cysts. There were several gallstones measuring up to 9 mm. He had scattered simple cysts within the liver measuring up to 4.5 cm. When he was in the office on 11/08/2024 patient did wish to undergo cholecystectomy but wanted to wait until wintertime. He has had a few episodes of postprandial pain radiating into his back. Operative findings:: He had a somewhat thickened gallbladder with some contracture in the mid body consistent with scarring. He had quite a prominent cystic artery. Operative note:: Consent was obtained patient was taken the operating room. He was positioned supine position. General anesthesia was induced via endotracheal tube. Abdomen was prepped and draped in standard surgical fashion. Subumbilical skin incision was made while performing abdominal wall lift Veress needle was inserted. CO2 pneumoperitoneum was achieved to 15 mmHg. 5 mm optical trocar was inserted infraumbilical location. Intraperitoneal contents were visualized. He was positioned in reverse Trendelenburg left side down. A couple 5 mm trocars were inserted in the upper abdomen. 11 mm trocar was inserted in the epigastrium. Gallbladder was identified and retracted anteriorly and superiorly over the dome of the liver. Please note the careful inspection was carried out the liver there were noted to be no obvious cysts on the surface. There was some fatty infiltration around the neck of the gallbladder. Blunt dissection was carried out the neck of the gallbladder bluntly incising the visceral peritoneum. Initially cystic artery was encountered. This was quite prominent. Additional prolonged dissection was carried out identifying cystic duct and cystic artery and the critical view of safety. The cystic artery was quite prominent and it was dissected out along the left anterior edge of the gallbladder to ensure it was truly the cystic artery. It was squeezed temporarily to assess for blanching of the liver which none was noted. Once the cystic duct and cystic artery were clearly identified and isolated the cystic duct was multiply clipped and sharply divided. Due to the prominence of the cystic artery a single Hemoclip was applied and using ultrasonic harmonic derek it was divided and coagulated. The gallbladder was dissected free from the liver in a retrograde fashion using ultrasonic harmonic derek. Gallbladder was placed within an Endo Catch retrieval device and removed from the peritoneal cavity via the epigastric trocar site. Gallbladder fossa was inspected for hemostasis which was assured. Limited irrigation and suctioning was carried out. Trocars were removed the CO2 pneumoperitoneum was evacuated. Anterior rectus fascia at the epigastric trocar site was closed with a 0 Vicryl suture. Local anesthetic was infiltrated. Skin incisions were closed with 4-0 Monocryl. Epidermis was reapproximated at the 5 mm right upper quadrant trocar sites with a couple of 5-0 fast-absorbing plain gut horizontal mattress sutures. Steri-Strips and dressings were applied. . Condition: stable Disposition: PACU Complications:: None immediately apparent
--- NOTE | 2025-04-03 08:37 | EXP.ANES.I ---
[facility] Anesthesia Record Part I Anesthesia Record I Intake, IV Amount: 700 Hydration: Adequate Estimated blood loss (mL): 25 Urine output (mL): 0 Blood Products used (#): none Blood Pressure: 124/84 SaO2: 94 Pulse Rate: 73 Airway Patency: Patent Respiratory Rate: 16 Temperature: 97.0 F Patient is:: Nasal O2, Oral/Nasal airway, Stable and Somnolent Stable to PACU at:: 08:32
[2025-04-03] MEDS: ONDANSETRON 4MG/2ML VIAL 4 MG IV (09:09)
--- NOTE | 2025-04-03 13:57 | P.PNANES_ITS ---
[facility] Anesthesia Record Part II Anesthesia Record Part II Discharge Time: 09:42 Destination: Surgical Day Care (OP Surgery) PACU nurse assessment reviewed?: Yes Patient Condition:: Good Anesthesia Complications:: None Swallowing reflex intact?: Yes Airway Patency: Patent Cyanosis?: No Blood Pressure: 122/79 SaO2: 96 Respiratory Rate: 17 Pulse Rate: 67 Temperature: 97.1 F Mental Status: Alert & Oriented Pain level:: 2 Nausea and/or vomitting:: Nauseated Intake, IV Amount: 0 Hydration: Adequate
== END 2025-04-03 10:00 | disposition home or self-care (01) ==
PROVIDERS: PCP Internal Medicine; Visit Provider Surgery
PROC: 0FT44ZZ Resection of Gallbladder, Percutaneous Endoscopic Approach (ICD-10-PCS; CPT 47562; principal; 2025-04-03 07:30)
DX: K80.10 Calculus of gallbladder with chronic cholecystitis without obstruction (principal); K76.89 Other specified diseases of liver; K59.00 Constipation, unspecified; Z79.51 Long term (current) use of inhaled steroids; Z79.899 Other long term (current) drug therapy
CPT/HCPCS: 47562; 96374; J0690; J1100; J2003; J2250; J2405; J2704; J2795; J3010; J7120